=== PATIENT | female | born 1995 | race American Indian/Alaskan Native ===

== ENCOUNTER 2020-05-19 14:31 | Outpatient (REF) | payer OTHER, SELFPAY ==
[2020-06-12 14:22] LABS: CT PCR NOT DETECTED (Not Detect.); NG PCR NOT DETECTED (Not Detect.)
== END 2020-05-19 14:32 | disposition home or self-care (01) ==
LOC: HO.LAB 14:31
PROVIDERS: Visit Provider Obstetrics & Gynecology
DX: Z01.419 Encounter for gynecological examination (general) (routine) without abnormal findings (principal)
CPT/HCPCS: 87491; 87591; 88142

== ENCOUNTER 2021-01-02 17:35 | Emergency (ER) | payer OTHER, SELFPAY ==
[2021-01-02 17:42] VITALS: BP 115/96; PULSE 90; RESP 18; TEMP 36.1; O2SAT 100; BMI 35.5
[2021-01-02 19:35] VITALS: BP 134/77; PULSE 83; RESP 16; O2SAT 100
--- NOTE | 2021-01-02 19:54 | PC.NURSE ---
patient a&ox3, c/o headache/back/neck pain 01/11, vss, will continue to monitor.
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
[2021-01-02] MEDS: Ibuprofen 800 MG TABLET PO (20:41)
== END 2021-01-02 20:50 | disposition home or self-care (01) ==
PROVIDERS: Emergency Provider Internal Medicine
DX: S29.9XXA Unspecified injury of thorax, initial encounter (principal); M54.6 Pain in thoracic spine; V43.52XA Car driver injured in collision with other type car in traffic accident, initial encounter; Y93.9 Activity, unspecified; Y92.410 Unspecified street and highway as the place of occurrence of the external cause; Y99.9 Unspecified external cause status; Z79.899 Other long term (current) drug therapy
CPT/HCPCS: 99284

== ENCOUNTER 2022-06-20 08:54 | Outpatient (REF) | payer OTHER, SELFPAY ==
[2022-06-20 09:12] LABS: MANUAL DIFF FLAG NO
[2022-06-20 09:22] LABS: Basophils Percent Auto 0.3 % (0-2); Eosinophils Percent Auto 0.4 % (0-4); Hematocrit 39.6 % (37.0-47.0); Hemoglobin 13.3 g/dl (12.0-16.0); Imm Gran Abs Auto 0.01 X10*3/uL (0.00-0.03); Imm Gran Pct Auto 0.1 % (0.0-0.4); Lymphocytes Absolute Auto 1.8 X10*3/uL (1.2-4.9); Lymphocytes Percent Auto 18.6 % (20-40); Mean Corpuscular HGB Conc 33.6 g/dl (31.0-35.0); Mean Corpuscular Hemoglobin 28.9 pg (27.0-33.0); Mean Corpuscular Volume 85.9 fL (80.0-98.0); Monocytes Absolute Auto 0.8 X10*3/uL (0.1-1.2); Monocytes Percent Auto 7.7 % (2-11); Neutrophils Absolute Auto 7.2 x10*3/uL (2.0-8.3); Neutrophils Percent Auto 72.9 % (45-73); Platelet Count 353 X10*3/uL (160-400); Red Blood Count 4.61 X10*6/uL (4.20-5.50); Red Cell Distribution Width 11.9 % (11.0-16.0); White Blood Count 9.8 X10*3/uL (4.8-10.8)
[2022-06-20 10:04] LABS: Alanine Aminotransferase 14 U/L (0-31); Albumin Level 4.5 g/dL (3.5-5.0); Alkaline Phosphatase 63 U/L (39-117); Anion Gap 12 (12-20); Aspartate Amino Transferase 15 U/L (5-31); Bilirubin Total 0.8 mg/dL (0.0-1.0); Blood Urea Nitrogen 13 mg/dL (9-16); Calcium 9.5 mg/dL (8.4-10.2); Carbon Dioxide 28 mmol/L (22-29); Chloride 104 mmol/L (96-108); Cholesterol 146 mg/dL; Estimated Glomerular Filt Rate > 60; Glucose Fasting 98 mg/dL (60-99); HDL Cholesterol 47 mg/dL; LDL Cholesterol Calculated 82 mg/dl; Potassium 4.1 mmol/L (3.3-5.1); Sodium 140 mmol/L (135-145); Total Protein 7.3 g/dL (6.5-8.0); Triglycerides 86 mg/dL
[2022-06-20 10:19] LABS: Free T4 (Free Thyroxine) 0.94 ng/dL (0.71-1.85); Thyroid Stimulating Hormone 2.23 uIU/mL (0.32-4.0)
== END 2022-06-20 08:55 | disposition home or self-care (01) ==
LOC: HO.LAB 08:54
PROVIDERS: PCP Internal Medicine; Visit Provider Internal Medicine
DX: E66.9 Obesity, unspecified (principal)
CPT/HCPCS: 36415; 80053; 80061; 84439; 84443; 85025

== ENCOUNTER 2023-02-24 10:11 | Outpatient (AMB) | payer OTHER, SELFPAY ==
[2023-02-24 11:40] VITALS: BP 122/78; PULSE 89; TEMP 36.6; BMI 37.6
--- NOTE | 2023-02-24 11:40 | AM.OFFWIN_ITS ---
Intake Vital Signs 02/24/23 11:40 Height 4 ft 10 in Weight 180 lb BMI 37.6 BP 122/78 Blood Pressure Location Rt brachial Position Sitting Pulse 89 Pulse Source Pulse Oximeter Temp 97.9 F Temp Source Temporal Artery Scan Intake Visit Reasons: EST/right arm issues Intake Note: pt is here for c/o right arm issues, painful bump Patient Tobacco Use Status: Never used Tobacco Allergies No Known Allergies Allergy (Verified 02/24/23 11:41) Do you need a note to return to daycare/school/sports/work: Yes HPI EST/right arm issues HPI Details Patient is a 27-year-old female comes to the walk-in clinic complaining of some tenderness to right anterior elbow. She states she was palpating the she noticed that she has a palpable mass, and then started to feel some discomfort. She has no current pain or symptoms, and denies the area ever being red or warm or swollen. She denies trauma to the area, although she does have overlying tattoos. No fever chills, weakness or dizziness, myalgias or malaise, or other significant associated symptoms. FOR[facility]LY [facility], [facility] Medical History Depression Surgical History No pertinent past surgical history Family History Maternal Grandmother Diabetes HTN (hypertension) Family/Other Substance use disorder Social History Housing: Apartment Alcohol intake: current Alcohol intake frequency: holidays/special occasions only Alcohol type: hard liquor Patient Tobacco Use Status: Never used Tobacco e-Cigarette/Vaping Use: Never Used Second Hand Smoke Exposure: No service: No Current occupational status: unemployed Sexual orientation: Straight/Heterosexual Gender identity: Female Cognitive needs: No Hearing needs: No Vision needs: No Female Reproductive History Menstrual Age of Menarche: 12 Review of Systems Const All systems reviewed & are unremarkable except as noted in HPI and below Physical Exam Vital Signs: Last Vital Signs Temp 97.9 F 02/24/23 11:40 Pulse 89 02/24/23 11:40 BP 122/78 02/24/23 11:40 BMI result Body Mass Index 37.6 Const General: cooperative, healthy appearing, comfortable, no acute distress, alert, awake, Physically active and well groomed; No anxious, diaphoretic, ill appearing, intoxicated appearing, poor hygiene or tired appearing Nutritional Appearance: average body habitus Orientation/consciousness: oriented to person Limitations: no limitations Resp Effort & Inspection: normal respiratory effort Cardio Rate: regular rate Rhythm: regular rhythm Skin Other: Good color, warm and dry Neuro General: oriented to person Extrem Right upper extremity: normal to inspection, full ROM, normal capillary refill and elbow/forearm Details: normal to inspection and other (Palpable soft tissue on the anterior aspect of the right forearm, just distal to the crease of the elbow. Similar to the left side); no tenderness, no swelling, no lacerations, no ecchymosis and no deformity; no cyanosis and no edema Left upper extremity: elbow/forearm Details: other (Similar palpable mass in same area as the right) Psych Appearance: grossly normal Mental Status: mental status grossly normal Speech and movement: Normal speech and movement present Affect: normal affect Attitude: cooperative Thought process: Normal thought process present Insight: Good insight present (Psych) Judgement: Good judgement present (Psych) Assessment & Plan Assessment & Plan (1) Lipoma of arm: Code(s): D17.20 - Benign lipomatous neoplasm of skin and subcutaneous tissue of unspecified limb Plan: Patient has what feels to be soft mobile tissue on the anterior aspects of her forearms, just distal to the elbow crease. It is possible they are lipomas, and might be associated with past trauma or just a normal variant for her. She does have tattoos on the skin overlying on the right side, which is where she some tenderness after she help set. I advised severe crying from the area, as the clinic did not aggravate her. Does not for, so I do not suspect a rupture epidermoid cyst, however I advised that she does start with some redness warmth or increased tenderness, that she should suspect epidermoid cyst rupture, she should follow-up. She would likely need general surgery for excision, as it is in a high-risk area. Coding Level of Care Code Est Pt Level 4 (39070) Diagnoses Lipoma of arm D17.20
== END 2023-02-24 12:51 | disposition home or self-care (01) ==
PROVIDERS: PCP Internal Medicine; Visit Provider Physician Assistant Medical
DX: D17.20 Benign lipomatous neoplasm of skin and subcutaneous tissue of unspecified limb (principal)
CPT/HCPCS: 99051; 99214

== ENCOUNTER 2023-05-10 09:50 | Outpatient (AMB) | payer OTHER, SELFPAY ==
--- NOTE | 2023-05-10 10:02 | A.OFFVIS_ITS ---
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 No complaints. The patient is interested in STD screen Last Pap was in 05/23 was negative PFSH Medical History Depression Surgical History No pertinent past surgical history Family History Maternal Grandmother Diabetes HTN (hypertension) Family/Other Substance use disorder Social History Housing: Apartment Alcohol intake: current Alcohol intake frequency: holidays/special occasions only Alcohol type: hard liquor Patient Tobacco Use Status: Never used Tobacco e-Cigarette/Vaping Use: Never Used Second Hand Smoke Exposure: No service: No Current occupational status: unemployed Sexual orientation: Straight/Heterosexual Gender identity: Female Cognitive needs: No Hearing needs: No Vision needs: No Female Reproductive History Menstrual Age of Menarche: 12 Date of last menstrual period: 04/24/23 Total pregnancies: 1 Full term: 1 Number of Living Children: 1 Date of last pap smear: 05/20/20 Review of Systems Const All systems reviewed & are unremarkable except as noted in HPI and below Card Reports as per HPI Resp Reports as per HPI GI Reports as per HPI and Reports no additional complaints Reports as per HPI Physical Exam Vital Signs: Last Vital Signs BP 118/70 05/10/23 10:03 BMI result Body Mass Index 37.3 Const General: cooperative, healthy appearing and comfortable Chest Chest palpation & inspection: normal inspection of the chest and normal palpation of entire chest wall Breast/axilla inspection: normal inspection of the breasts and normal inspection of the axillae Breast/axilla palpation: normal palpation of the breasts, normal palpation of the axillae and no axillary lymphadenopathy Resp Effort & Inspection: normal respiratory effort Auscultation: clear to auscultation bilaterally Percussion: percussion normal Cardio Palpation: normal PMI Rate: regular rate Rhythm: regular rhythm Heart sounds: no murmurs and no rubs Peripheral pulses: Peripheral pulses 2+ throughout GI Inspection: Yes normal to inspection Palpation (GI): Soft to palpation, nontender, no guarding, not rigid and No hepatosplenomegaly present Percussion: Yes normal to percussion Auscultation: normal bowel sounds Rectal Exam - Female: deferred General: Yes bladder normal to palpation External Female Exam: No lesion Speculum Exam - Vagina: normal appearance of the vagina, normal palpation, normal vaginal discharge and not erythematous Speculum Exam - Cervix: normal appearance of the cervix and normal palpation Bimanual exam- vagina & uterus: normal bimanual exam, normal palpation, uterine size normal, bladder normal to palpation, consistency normal and normal palpati on Bimanual Exam- Adnexa, other: normal adnexae, no masses and no tenderness Assessment & Plan Assessment & Plan (1) Well woman exam: Code(s): Z01.419 - Encounter for gynecological examination (general) (routine) without abnormal findings Plan: Pap smear taken. Counseled the patient about the recommended dietary allowance of 1000 mg of Calcium & 600 IU of vitamin D. The patient was instructed to perform monthly self-breast exams , to call for any changes in menstrual patterns and to schedule an annual exam in a year; all questions answered and the patient verbalized understanding. (2) Screen for STD (sexually transmitted disease): Code(s): Z11.3 - Encounter for screening for infections with a predominantly sexual mode of transmission Plan: STD screening tests done includes: BV panel for trichomonas, GC/CT will send patient for serology std screening for HIV, RPR, Hep b s Ag, HepC Ab. Instructions given the patient to schedule a follow-up appointment for repeat serology screen in 6 months for possible false negatives. Orders: Orders HIV Ab/Ag Today Z20.2 - Contact with and (suspected) exposure to infections with a predominantly sexual mode of transmission Hepatitis B Surface Antigen Today Z20.2 - Contact with and (suspected) exposure to infections with a predominantly sexual mode of transmission Hepatitis C Antibody Today Z20.2 - Contact with and (suspected) exposure to infections with a predominantly sexual mode of transmission Syphilis Screen Today Z20.2 - Contact with and (suspected) exposure to infections with a predominantly sexual mode of transmission Coding Level of Care Code Est Pt Prev Care 18-39y(05067) Diagnoses Well woman exam Z01.419 Screen for STD (sexually transmitted disease) Z11.3
[2023-05-10 10:03] VITALS: BP 118/70; BMI 37.3
== END 2023-05-10 10:28 | disposition home or self-care (01) ==
PROVIDERS: Visit Provider Obstetrics & Gynecology
DX: Z01.419 Encounter for gynecological examination (general) (routine) without abnormal findings (principal); Z11.3 Encounter for screening for infections with a predominantly sexual mode of transmission
CPT/HCPCS: 99395

== ENCOUNTER 2023-05-10 09:50 | Outpatient (REF) | payer OTHER, SELFPAY ==
[2023-05-10 12:06] LABS: HBsAGNum1 0.43 S/CO (0.00-0.99); HIV AB/AG Nonreactive (Nonreactive); HIV Num 1 0.04 S/CO (0.00-0.99); Hepatitis B Surface Antigen Negative (Negative); Syphilis Screen Nonreactive (Nonreactive); ~HepC Num1 0.16 S/CO (0.00-0.79); ~Hepatitis C Antibody Nonreactive (Nonreactive)
[2023-05-10 15:03] LABS: CT PCR NOT DETECTED (Not Detect.); NG PCR NOT DETECTED (Not Detect.)
[2023-05-11 13:15] LABS: BV Int Neg Control Negative (Negative); BV Int Pos Control Positive (Positive)
== END 2023-05-10 09:51 | disposition home or self-care (01) ==
LOC: HO.LAB 09:50
PROVIDERS: PCP Internal Medicine; Visit Provider Obstetrics & Gynecology
DX: Z01.419 Encounter for gynecological examination (general) (routine) without abnormal findings (principal); Z20.2 Contact with and (suspected) exposure to infections with a predominantly sexual mode of transmission
CPT/HCPCS: 0353U; 36415; 86780; 86803; 87340; 87389; 87480; 87510; 87660; 88142

== ENCOUNTER 2023-10-16 16:32 | Outpatient (AMB) | payer OTHER, SELFPAY ==
--- NOTE | 2023-10-16 16:32 | A.OFFPC_ITS ---
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 Accompanied by: Mother Allergies No Known Allergies Allergy (Verified 10/16/23 16:54) Medication List - Last Reconciled 10/16/23 by Lore Contreras MD escitalopram oxalate 10 mg PO DAILY fluocinonide 0.05% 1 appl topical BID 30 days lorazepam 0.5 mg PO BEDTIME PRN polyvinyl alcohol 1.4% (Artificial Tears (polyvinyl alcohol)) 1 drp ophthalmic (eye) BID-QID PRN 7 days valacyclovir (Valtrex) 500 mg PO BID 3 days Tobacco use date assessed: 10/16/23 Dental Screening Dental Screen Date: 10/16/23 Did you have a dental visit in the last 12 months?: Yes Did you have a dental problem in the last 6 months where you did not have access to dental care?: No Was dental information given to patient?: Patient has dentist HPI HPI Comments History of Present Illness Details This is a 28-year-old female that comes today accompanied by mother complaining of a lump in her left arm that has been present for years but recently it has been tender and bigger. Will be referred to surgery and I will order ultrasound. FOR[facility]LY [facility], [facility] Medical History (Updated 10/16/23 @ 18:10 by Lore Contreras MD) Mild major depression Depression Surgical History No pertinent past surgical history Family History Maternal Grandmother Diabetes HTN (hypertension) Family/Other Substance use disorder Social History Housing: Apartment Alcohol intake: current Alcohol intake frequency: holidays/special occasions only Alcohol type: hard liquor Patient Tobacco Use Status: Never used Tobacco e-Cigarette/Vaping Use: Never Used Second Hand Smoke Exposure: No service: No Current occupational status: employed Current occupational exposures/hazards: No Sexual orientation: Straight/Heterosexual Gender identity: Female Cognitive needs: No Hearing needs: No Vision needs: No Female Reproductive History Menstrual Age of Menarche: 12 Questionnaire PHQ-9 Over the last 2 weeks, how often have you been bothered by any of the following problems? 1. Little interest or pleasure in doing things: not at all 2. Feeling down, depressed, or hopeless: not at all 3. Trouble falling or staying asleep, or sleeping too much: not at all 4. Feeling tired or having little energy: not at all 5. Poor appetite or overeating: not at all 6. Feeling bad about yourself - or that you are a failure or have let yourself or your family down: not at all 7. Trouble concentrating on things, such as reading the newspaper or watching television: not at all 8. Moving or speaking so slowly that other people could have noticed. Or the opposite - being so fidgety or restless that you have been moving around a lot more than usual: not at all 9. Thoughts that you would be better off or of hurting yourself in some way: not at all Total score: 0 Depression Screening Interpretation: Negative Depression Screening Done: Yes 40274 - PHQ-9 Billing: Yes Source: Developed by Drs. Piero Ren, Mariely Meyer, Cristiano Manzano and colleagues, with an educational kenji from [employer]. Thrive Questionnaire Date Thrive assessed: 10/16/23 I am a: Patient What is your living situation today?: I have a steady place to live Within the past 12 months, did the food you bought not last and you didn't have the money to get more?: Never true Within the past 12 months, did you worry whether your food would run out before you got money to buy more?: Never true Do you have trouble paying for medicines?: No Do you have trouble getting transportation to medical appointments?: No Do you have trouble paying your heating and electricity bill?: No Do you have trouble taking care of your child, family member or friend?: No Do you have trouble with day-to-day activities such as bathing, preparing meals, shopping, managing finances, etc.?: No Are you currently unemployed and looking for a job?: No Are you interested in more education?: No Please select the resources that you would like help with: None Currently or been in a relationship where the following occur: no concerns reported THRIVE Score: 0 AUDIT C Alcohol Use Questionnaire (AUDIT-C) 1. How often do you have a drink containing alcohol?: Never Total Score: 0 Score Reviewed/Action Taken: No YAJAIRA-7 AMB Questionnaire YAJAIRA-7 Date YAJAIRA - 7 assessed: 10/16/23 Feeling nervous, anxious, or on edge: 1 = Several days Not being able to stop or control worryin = Several days Worrying too much about different things: 3 = Nearly every day Trouble relaxin = Nearly every day Being so restless that it is hard to sit still: 1 = Several days Becoming easily annoyed or irritable: 1 = Several days Feeling afraid as if something awful might happen: 0 = Not at all Total YAJAIRA-7 score (0-4 normal; 5-9 mild; 10-14 moderate; 15-21 severe): 10 Source: Developed by Drs. Piero Ren, Mariely Meyer, Cristiano Manzano and colleagues, with an educational kenji from [employer]. YAJAIRA-7 Assessment Billing YAJAIRA-7 Assessment Tool: YAJAIRA-7 Assessment 87191 Review of Systems Const All systems reviewed & are unremarkable except as noted in HPI and below Eyes Reports no additional complaints, Denies change in vision and Denies other visual disturbances Card Denies chest pain at rest, Denies chest pain with activity, Denies edema, Denies irregular heart rhythm, Denies claudication, Denies dyspnea, Denies dyspnea on exertion, Denies orthopnea, Denies paroxysmal nocturnal dyspnea and Denies slow heart rate Resp Denies cough, Denies dyspnea and Denies dyspnea on exertion GI Denies abdominal pain, Denies change in bowel habits, Denies excessive flatus, Denies nausea and Denies vomiting Denies urinary incontinence, Denies urinary hesitancy and Denies urinary urgency Physical exam (Primary Care) Vital Signs: Last Vital Signs BP 122/80 10/16/23 16:33 BMI result Body Mass Index 38.9 Tobacco/Smoking Status: Tobacco use Status Tobacco use date assessed 10/16/23 10/16/23 16:43 Patient Tobacco Use Status Never used Tobacco 10/16/23 16:43 e-Cigarette/Vaping Use Never Used 10/16/23 16:43 PHQ-9: PHQ-9 Score PHQ-9: Total score 0 10/16/23 16:57 Depression Screening Interpretation: Negative Thrive Assessment: Date of Thrive Assessment Date Thrive assessed 10/16/23 10/16/23 16:43 Currently or been in a relationship where the following occur: no concerns reported Resp Effort & Inspection: normal respiratory effort Auscultation: clear to auscultation bilaterally Cardio Jugular venous distension: no JVD Rate: regular rate Rhythm: regular rhythm Heart sounds: S1 normal heart sound present and S2 normal heart sound present Extrem General: Yes full ROM Assessment and Plan Assessment & Plan (1) Lump of skin of left upper extremity: Code(s): R22.32 - Localized swelling, mass and lump, left upper limb Plan: Ultrasound of the arm ordered. Referred to surgery. Orders: Orders US extremity nonvascular damon Today R22.32 - Localized swelling, mass and lump, left upper limb Referrals General Surgery Referral R22.32 - Localized swelling, mass and lump, left upper limb Coding Level of Care Code Est Pt Level 3 (67693) Diagnoses Lump of skin of left upper extremity R22.32 Additional Codes YAJAIRA-7 Assessment Billing - YAJAIRA-7 Assessment Tool: YAJAIRA-7 Assessment 12649 ([id number]) Time Spent (min) 23
[2023-10-16 16:33] VITALS: BP 122/80; BMI 38.9
== END 2023-10-16 17:03 | disposition home or self-care (01) ==
PROVIDERS: PCP Internal Medicine; Visit Provider Internal Medicine
DX: R22.32 Localized swelling, mass and lump, left upper limb (principal)
CPT/HCPCS: 99213

== ENCOUNTER 2023-11-05 09:20 | Outpatient (AMB) | payer OTHER, SELFPAY ==
[2023-11-05 09:32] VITALS: BP 126/80; BMI 38.5
--- NOTE | 2023-11-05 09:32 | A.OFFPC_ITS ---
Vital Signs 11/05/23 09:32 Height 4 ft 10 in Weight 184 lb BMI 38.5 BP 126/80 Blood Pressure Location Lt brachial Position Sitting Intake Visit Reasons: pe Intake Note: Patient here for a physical exam Cd Mixer Required: No Accompanied by: Mother Allergies No Known Allergies Allergy (Verified 11/05/23 09:53) Medication List - Last Reconciled 11/05/23 by Lore Contreras MD escitalopram oxalate 10 mg PO DAILY fluocinonide 0.05% 1 appl topical BID 30 days lorazepam 0.5 mg PO BEDTIME PRN polyvinyl alcohol 1.4% (Artificial Tears (polyvinyl alcohol)) 1 drp ophthalmic (eye) BID-QID PRN 7 days valacyclovir (Valtrex) 500 mg PO BID 3 days Tobacco use date assessed: 10/16/23 Dental Screening Dental Screen Date: 10/16/23 HPI HPI Comments History of Present Illness Details This is a 28-year-old female with mild major depression follow by psychiatry and counseling that comes accompanied by mother for her physical exam. Depression still present with escitalopram. Follow-up visit requested. Pap smear is up-to-date. Denies any chest pain or shortness on breath. She has a BMI of 38.5 and I will start her on Wegovy for this matter. Side effects were thoroughly explained. [facility] Medical History (Updated 11/05/23 @ 11:02 by Lore Contreras MD) Mild major depression Depression Surgical History No pertinent past surgical history Family History (Updated 11/05/23 @ 09:56 by Lore Contreras MD) Maternal Grandmother Diabetes HTN (hypertension) Family/Other Substance use disorder Mother No problems noted. Social History Housing: Apartment Alcohol intake: current Alcohol intake frequency: holidays/special occasions only Alcohol type: hard liquor Patient Tobacco Use Status: Never used Tobacco e-Cigarette/Vaping Use: Never Used Second Hand Smoke Exposure: No service: No Current occupational status: employed Current occupational exposures/hazards: No Sexual orientation: Straight/Heterosexual Gender identity: Female Cognitive needs: No Hearing needs: No Vision needs: No Female Reproductive History Menstrual Age of Menarche: 12 Questionnaire PHQ-9 Over the last 2 weeks, how often have you been bothered by any of the following problems? 1. Little interest or pleasure in doing things: several days 2. Feeling down, depressed, or hopeless: several days 3. Trouble falling or staying asleep, or sleeping too much: several days 4. Feeling tired or having little energy: several days 5. Poor appetite or overeating: several days 6. Feeling bad about yourself - or that you are a failure or have let yourself or your family down: several days 7. Trouble concentrating on things, such as reading the newspaper or watching television: several days 8. Moving or speaking so slowly that other people could have noticed. Or the opposite - being so fidgety or restless that you have been moving around a lot more than usual: several days 9. Thoughts that you would be better off or of hurting yourself in some way: several days Total score: 9 Depression Screening Interpretation: Positive Depression Screening Follow-up: Existing condition, In treatment, Community Mental Health Worker F/U and Follow-up Visit Requested Depression Screening Done: Yes 15922 - PHQ-9 Billing: Yes Source: Developed by Drs. Piero Ren, Cristiano Martinez and colleagues, with an educational kenji from [employer]. Thrive Questionnaire Date Thrive assessed: 10/16/23 YAJAIRA-7 AMB Questionnaire YAJAIRA-7 Date YAJAIRA - 7 assessed: 10/16/23 Source: Developed by Mariely Rose Kurt Kroenke and colleagues, with an educational kenji from [employer]. Review of Systems Const All systems reviewed & are unremarkable except as noted in HPI and below Eyes Reports no additional complaints, Denies change in vision and Denies other visual disturbances Card Denies chest pain at rest, Denies chest pain with activity, Denies edema, Denies irregular heart rhythm, Denies claudication, Denies dyspnea, Denies dyspnea on exertion, Denies orthopnea, Denies paroxysmal nocturnal dyspnea and Denies slow heart rate Resp Denies cough, Denies dyspnea and Denies dyspnea on exertion Physical exam (Primary Care) Vital Signs: Last Vital Signs BP 126/80 11/05/23 09:32 BMI result Body Mass Index 38.5 Tobacco/Smoking Status: Tobacco use Status Tobacco use date assessed 10/16/23 11/05/23 09:36 Patient Tobacco Use Status Never used Tobacco 11/05/23 09:36 e-Cigarette/Vaping Use Never Used 11/05/23 09:36 PHQ-9: PHQ-9 Score PHQ-9: Total score 9 11/05/23 10:07 Depression Screening Interpretation: Positive Depression Screening Follow-up: Existing condition, In treatment, Community Mental Health Worker F/U and Follow- up Visit Requested Thrive Assessment: Date of Thrive Assessment Date Thrive assessed 10/16/23 11/05/23 09:36 Const Orientation/consciousness: patient oriented x3 HENMT Head: Yes normal to inspection, Yes normocephalic and Yes atraumatic Ears: external ears normal Eyes General: appearance normal, both eyes and all related structures Eyelids: Yes eyelids normal Conjunctivae: conjunctivae normal Neck Neck: Yes normal visual inspection and Yes supple Resp Effort & Inspection: normal respiratory effort Auscultation: clear to auscultation bilaterally Cardio Jugular venous distension: no JVD Rate: regular rate Rhythm: regular rhythm Heart sounds: S1 normal heart sound present and S2 normal heart sound present GI Inspection: Yes normal to inspection Palpation (GI): Soft to palpation and nontender Auscultation: normal bowel sounds Skin General skin exam: no rashes or lesions noted Neuro General: patient oriented x3 and no focal motor deficits Extrem General: Yes full ROM Psych Appearance: grossly normal Assessment and Plan Assessment & Plan (1) Physical exam: Code(s): Z00.00 - Encounter for general adult medical examination without abnormal findings Plan: Repeat in a year. (2) Mild major depression: Code(s): F32.0 - Major depressive disorder, single episode, mild Plan: Continue escitalopram. Follow-up with psychiatry and counseling. Orders: Orders Complete Blood Count Auto Diff Today D72.829 - Elevated white blood cell count, unspecified Comprehensive [place]. Panel Fast Today Z00.00 - Encounter for general adult medical examination without abnormal findings Lipid Panel Today E78.5 - Hyperlipidemia, unspecified Vitamin D 25-OH Total Today E55.9 - Vitamin D deficiency, unspecified Medications: New semaglutide (weight loss) (Alejandro) administer weeks 1 through 4 of therapy 0.25 mg (0.5 mL) subcut QWEEK 2 mL 0RF 4 weeks E66.9 - Obesity, unspecified, Z68.38 - Body mass index [BMI] 38.0- 38.9, adult Coding Level of Care Code Est Pt Prev Care 18-39y(10566) Diagnoses Physical exam Z00.00 Mild major depression F32.0 Time Spent (min) 33
== END 2023-11-05 10:07 | disposition home or self-care (01) ==
PROVIDERS: Visit Provider Internal Medicine
DX: Z00.00 Encounter for general adult medical examination without abnormal findings (principal); F32.0 Major depressive disorder, single episode, mild
CPT/HCPCS: 99395

== ENCOUNTER 2023-11-05 10:22 | Outpatient (REF) | payer OTHER, SELFPAY ==
--- NOTE | ~2023-11-05 | US_ITS ---
EXAMINATION: US extremity nonvascular damon CLINICAL INFORMATION: Localized swelling, mass and lump, right upper limb COMPARISON: None. TECHNIQUE: Real time sonographic exam of the palpable area of concern in the lateral right upper extremity near the elbow. FINDINGS: Superficial tortuous serpiginous hypoechoic areas without color flow seen in the soft tissue of the lateral elbow which may be originating from the cephalic vein. These are favored to represent thrombosed varicose veins. There is no soft tissue edema surrounding stranding or adjacent fluid collection. US/US extremity nonvascular damon IMPRESSION: Thrombosed superficial varicose veins along the lateral right elbow which can be seen in thrombophlebitis in the appropriate clinical setting.
[2023-11-05 10:33] LABS: MANUAL DIFF FLAG NO
[2023-11-05 10:43] LABS: Basophils Percent Auto 0.4 % (0-2); Eosinophils Percent Auto 0.6 % (0-4); Hematocrit 39.7 % (37.0-47.0); Hemoglobin 13.4 g/dl (12.0-16.0); Imm Gran Abs Auto 0.02 X10*3/uL (0.00-0.03); Imm Gran Pct Auto 0.3 % (0.0-0.4); Lymphocytes Absolute Auto 1.7 X10*3/uL (1.2-4.9); Lymphocytes Percent Auto 24.3 % (20-40); Mean Corpuscular HGB Conc 33.8 g/dl (31.0-35.0); Mean Corpuscular Hemoglobin 29.6 pg (27.0-33.0); Mean Corpuscular Volume 87.6 fL (80.0-98.0); Mean Platelet Volume 9.1 fL (9.4-12.3); Monocytes Absolute Auto 0.6 X10*3/uL (0.1-1.2); Neutrophils Absolute Auto 4.6 x10*3/uL (2.0-8.3); Neutrophils Percent Auto 66.4 % (45-73); Platelet Count 338 X10*3/uL (160-400); Red Blood Count 4.53 X10*6/uL (4.20-5.50); Red Cell Distribution Width 12.2 % (11.0-16.0); White Blood Count 6.9 X10*3/uL (4.8-10.8)
[2023-11-05 11:29] LABS: Alanine Aminotransferase 12 U/L (0-31); Albumin Level 4.5 g/dL (3.5-5.0); Alkaline Phosphatase 61 U/L (39-117); Anion Gap 11 (12-20); Aspartate Amino Transferase 15 U/L (5-31); Bilirubin Total 0.5 mg/dL (0.0-1.0); Blood Urea Nitrogen 13 mg/dL (9-16); Calcium 9.7 mg/dL (8.4-10.2); Carbon Dioxide 26 mmol/L (22-29); Chloride 108 mmol/L (96-108); Cholesterol 138 mg/dL (<200); Estimated Glomerular Filt Rate > 60; Glucose Fasting 95 mg/dL (60-99); HDL Cholesterol 53 mg/dL (>40); LDL Cholesterol Calculated 71 mg/dL (<100); Potassium 4.3 mmol/L (3.3-5.1); Sodium 141 mmol/L (135-145); Total Protein 7.4 g/dL (6.5-8.0); Triglycerides 74 mg/dL (<150)
[2023-11-05 11:31] LABS: Vitamin D 25-OH Total 13.6 ng/mL (>30)
== END 2023-11-05 10:23 | disposition home or self-care (01) ==
LOC: HO.US 10:22
PROVIDERS: PCP Internal Medicine; Visit Provider Internal Medicine
DX: R22.32 Localized swelling, mass and lump, left upper limb (principal); D72.829 Elevated white blood cell count, unspecified; E78.5 Hyperlipidemia, unspecified; E55.9 Vitamin D deficiency, unspecified; Z00.00 Encounter for general adult medical examination without abnormal findings
CPT/HCPCS: 36415; 76882; 80053; 80061; 82306; 85025

== ENCOUNTER 2023-11-06 11:15 | Outpatient (AMB) | payer OTHER, SELFPAY ==
--- NOTE | 2023-11-06 11:35 | MHC.OFFVIS ---
Vital Signs 11/06/23 11:39 Height 4 ft 10 in Weight 184 lb BMI 38.5 BP 145/96 H Blood Pressure Location Rt brachial Position Sitting Pulse 97 Intake Visit Reasons: Lump~ Rt upper arm Intake Note: Patient referred by PCP Dr. Gaurang Conrteras for lump on Rt upper arm. Present for yrs. Patient c/o: possible trauma from tattoo. Quality Improvement Manager Required: No Accompanied by: mom Allergies No Known Allergies Allergy (Verified 11/06/23 11:40) Medication List - Last Reconciled 11/06/23 by Abad Ramirez MD aspirin 81 mg PO DAILY 30 days cholecalciferol (vitamin D3) 50 mcg PO DAILY 90 days escitalopram oxalate 10 mg PO DAILY fluocinonide 0.05% 1 appl topical BID 30 days lorazepam 0.5 mg PO BEDTIME PRN polyvinyl alcohol 1.4% (Artificial Tears (polyvinyl alcohol)) 1 drp ophthalmic (eye) BID-QID PRN 7 days semaglutide (weight loss) (Wegovy) 0.25 mg (0.5 mL) subcut QWEEK 4 weeks valacyclovir (Valtrex) 500 mg PO BID 3 days HPI Comments Details: Patient presents with her mother. She has a left volar aspect lipoma which he has had for several years time. It is increasing size become more symptomatic. Separate issue patient had sonogram of the arm was demonstrated superficial thrombophlebitis which is different from mass of the right forearm. [facility] Medical History Mild major depression Depression Surgical History No pertinent past surgical history Family History Maternal Grandmother Diabetes HTN (hypertension) Family/Other Substance use disorder Mother No problems noted. Social History Housing: Apartment Alcohol intake: current Alcohol intake frequency: holidays/special occasions only Alcohol type: hard liquor Patient Tobacco Use Status: Never used Tobacco e-Cigarette/Vaping Use: Never Used Second Hand Smoke Exposure: No service: No Current occupational status: employed Current occupational exposures/hazards: No Sexual orientation: Straight/Heterosexual Gender identity: Female Cognitive needs: No Hearing needs: No Vision needs: No Female Reproductive History Menstrual Age of Menarche: 12 Physical Exam Vital Signs: Last Vital Signs Pulse 97 11/06/23 11:39 BP 145/96 H 11/06/23 11:39 BMI result Body Mass Index 38.5 Extrem Other: Patient has a proximally 3 x 2 cm right lateral in the anter-cubital fossa mass consistent with lipoma. Office Procedures Excision Details: Risks, benefits, alternatives of excision of right forearm lipoma reviewed with the patient and her mother and included but not limited to bleeding, infection, recurrence, numbness, pain, scarring the patient wished to proceed. All questions answered. Consent signed. After appropriate positioning and marking,, patient underwent 1% lidocaine and Betadine prep and a longitudinal incision was made over the mass in question consistent with a lipoma measuring approximately 3 x 2 cm. This was uneventfully enucleated. Specimen sent to pathology. Wound was irrigated, secured hemostasis, and closed using running subcuticular 3-0 Vicryl suture followed by Steri-Strips and sterile dressings. Patient tolerated procedure well 64571-adviw/arms/legs 2.1-3cm Procedure code (CPT) selection complete Office Meds lidocaine 1 %-epinephrine 1:100,000 injection solution Performing Provider: Abad Ramirez MD Performing Location: [facility] Administered by: Abad Ramirez MD on 11/06/23 12:14 Dose Route Admin Location Dispensed Lot Number Expiration Date [facility] Child Development Assistant 10 mL Infiltration 10 mL Assessment & Plan Assessment & Plan (1) Lipoma of arm: Code(s): D1. - Benign lipomatous neoplasm of skin and subcutaneous tissue of unspecified limb Category: Surgical Plan: Patient and mother have been given local instructions including avoiding strenuous activities, ice to the wound, Tylenol and Motrin p.r.n., may shower in 2 days and patient will see me as directed or p.r.n.. Orders: Orders AMB Excision Today . - Benign lipomatous neoplasm of skin and subcutaneous tissue of unspecified limb Medications: New lidocaine-epinephrine 1 %-1:100,000 10 mL Infiltration ONCE 30 mL 0RF D1.20 - Benign lipomatous neoplasm of skin and subcutaneous tissue of unspecified limb Coding Level of Care Code New Pt Level 5 (38585) Diagnoses Lipoma of arm D17.20 CPT Codes Trunk/Arms/Legs - CPT: 22107-yagmu/arms/legs 2.1-3cm ([id number])
[2023-11-06 11:39] VITALS: BP 145/96; PULSE 97; BMI 38.5
== END 2023-11-06 12:23 | disposition home or self-care (01) ==
PROVIDERS: PCP Internal Medicine; Referring Provider Internal Medicine; Visit Provider Surgery
DX: R22.31 Localized swelling, mass and lump, right upper limb (principal); L74.8 Other eccrine sweat disorders
CPT/HCPCS: 11403; 99204

== ENCOUNTER 2023-11-06 11:15 | Outpatient (REF) | payer OTHER, SELFPAY | END 2023-11-06 11:16 | disposition home or self-care (01) | LOC: HO.LNP 11:15 | PROVIDERS: PCP Internal Medicine; Referring Provider Internal Medicine; Visit Provider Surgery | DX: D17.20 Benign lipomatous neoplasm of skin and subcutaneous tissue of unspecified limb (principal) | CPT/HCPCS: 11403; 88304; 88307; 88341; 88342; 88360; 99202 ==

== ENCOUNTER 2023-11-13 09:48 | Outpatient (AMB) | payer OTHER, SELFPAY ==
--- NOTE | 2023-11-13 09:55 | A.OFFVIS_ITS ---
Intake Visit Reasons: s/p excision Lump~ Rt upper arm Intake Note: Patient here s/p exc on Rt antecubital. Reports incision healing well. Patient c/o: steri strips in place. Denies pain, tenderness. General Lithographic Worker Required: No Accompanied by: Mother Allergies No Known Allergies Allergy (Verified 11/13/23 09:56) HPI Comments Details: Patient presents with her mother. She has no wound issues or complaints. Pathology is still pending. [facility] Medical History Mild major depression Depression Surgical History No pertinent past surgical history Family History Maternal Grandmother Diabetes HTN (hypertension) Family/Other Substance use disorder Mother No problems noted. Social History Housing: Apartment Alcohol intake: current Alcohol intake frequency: holidays/special occasions only Alcohol type: hard liquor Patient Tobacco Use Status: Never used Tobacco e-Cigarette/Vaping Use: Never Used Second Hand Smoke Exposure: No service: No Current occupational status: employed Current occupational exposures/hazards: No Sexual orientation: Straight/Heterosexual Gender identity: Female Cognitive needs: No Hearing needs: No Vision needs: No Female Reproductive History Menstrual Age of Menarche: 12 Physical Exam Extrem Other: Incision is well healed. Assessment & Plan Assessment & Plan (1) Postop check: Code(s): Z09 - Encounter for follow-up examination after completed treatment for conditions other than malignant neoplasm Category: Surgical Plan Patient has been given local instructions, and will otherwise follow-up p.r.n.. Once pathology results are obtained, they will be communicated to the patient. Incidentally, patient i Patient' s mom has a left elbow cyst/mass that she would like to have excised. She will make an appointment and when the arrangements were made for this. Coding Level of Care Code Global (91695) Diagnoses Postop check Z09
== END 2023-11-13 10:36 | disposition home or self-care (01) ==
PROVIDERS: PCP Internal Medicine; Visit Provider Surgery
DX: Z09 Encounter for follow-up examination after completed treatment for conditions other than malignant neoplasm (principal)
CPT/HCPCS: 99024

== ENCOUNTER → 2023-11-13 09:48 | Outpatient (BNVA) | payer OTHER, SELFPAY | PROVIDERS: PCP Internal Medicine; Visit Provider Surgery | DX: Z09 Encounter for follow-up examination after completed treatment for conditions other than malignant neoplasm (principal); D17.20 Benign lipomatous neoplasm of skin and subcutaneous tissue of unspecified limb | CPT/HCPCS: 99212 ==

== ENCOUNTER 2024-02-22 14:28 | Outpatient (AMB) | payer OTHER, SELFPAY ==
[2024-02-22 14:31] VITALS: BP 124/86; BMI 38.2
--- NOTE | 2024-02-22 14:31 | MHC.OFFVIS ---
Vital Signs 02/22/24 14:31 Height 4 ft 10 in Weight 182 lb 15.739 oz BMI 38.2 BP 124/86 Intake Visit Reasons: Vaginal discharge Digital Sales Executive Required: No Information Interpreted: non-clinical & clinical Medical Videographer: Medical Videographer Present (Jes PORTILLO) Accompanied by: Self / Same As Patient Allergies No Known Allergies Allergy (Verified 02/22/24 14:32) Medication List - Last Reconciled 02/22/24 by Karis Reese CNM aspirin 81 mg PO DAILY 90 days cholecalciferol (vitamin D3) 50 mcg PO DAILY 90 days escitalopram oxalate 10 mg PO DAILY fluocinonide 0.05% 1 appl topical BID 30 days lorazepam 0.5 mg PO BEDTIME PRN polyvinyl alcohol 1.4% (Artificial Tears (polyvinyl alcohol)) 1 drp ophthalmic (eye) BID-QID PRN 7 days semaglutide (weight loss) (Wegovy) 0.25 mg (0.5 mL) subcut QWEEK 4 weeks valacyclovir (Valtrex) 500 mg PO BID 3 days Is last menstrual period known: Yes Last menstrual period: 02/09/24 HPI HPI Vaginal discharge: Details: Patient is here because she has vaginal itching she is since it started 2 or 3 days ago after she douched. She had chunky white discharge. She is not contraceptive thing she is open to . She also wants to get full screening for STIs She thinks she has a yeast infection. [facility] Medical History Mild major depression Depression Surgical History No pertinent past surgical history Family History Maternal Grandmother Diabetes HTN (hypertension) Family/Other Substance use disorder Mother No problems noted. Social History (Updated 02/22/24 @ 14:33 by Jes Gallardo CMA) Housing: Apartment Alcohol intake: current Alcohol intake frequency: holidays/special occasions only Alcohol type: hard liquor Patient Tobacco Use Status: Never used Tobacco e-Cigarette/Vaping Use: Never Used Second Hand Smoke Exposure: No service: No Current occupational status: employed Current occupation: [employer] Current occupational exposures/hazards: No Sexual orientation: Straight/Heterosexual Gender identity: Female Cognitive needs: No Hearing needs: No Vision needs: No Female Reproductive History Menstrual Age of Menarche: 12 Date of last menstrual period: 02/09/24 Physical Exam Vital Signs: Last Vital Signs BP 124/86 02/22/24 14:31 BMI result Body Mass Index 38.2 Other: Her vagina is somewhat erythematous especially the vaginal mucosa. There is a white slightly adherent discharge around clitoris, upper vulva, consistent with yeast or thrush, it can be removed with touch of Q-tip. External Female Exam: normal external appearance and normal appearance of the urethra Speculum Exam - Vagina: normal appearance of the vagina and normal vaginal discharge Speculum Exam - Cervix: normal appearance of the cervix and Cervical os closed Assessment & Plan Assessment & Plan (1) Screen for STD (sexually transmitted disease): Code(s): Z11.3 - Encounter for screening for infections with a predominantly sexual mode of transmission Category: Medical (2) Yeast infection of the vagina: Code(s): B37.31 - Acute candidiasis of vulva and vagina Category: Medical Plan It does appears if the patient has a vaginal yeast infection. Discussed causes and relief measures she prefers the Diflucan treatment will treat with 1 tablet and she can repeat it in 3 days if she has any symptoms still remaining. There is an interaction between her psychiatric medications and the fluconazole so I am not ordering extra refills for her if I did explain this to her. I recommend cool water only to vulva and pelvic rest until she feels completely better. There were orders in the system for screened for STI but it appeared she did get those done so orders were placed as well that she can get done when she wishes.. Orders: Orders Bacterial Vaginosis Panel Today N89.8 - Other specified noninflammatory disorders of vagina HIV Ab/Ag Today Z11.3 - Encounter for screening for infections with a predominantly sexual mode of transmission Syphilis Screen Today Z11.3 - Encounter for screening for infections with a predominantly sexual mode of transmission CT NG by PCR Today N89.8 - Other specified noninflammatory disorders of vagina Hepatitis B Surface Antigen Today Z11.3 - Encounter for screening for infections with a predominantly sexual mode of transmission Hepatitis C Antibody Today Z11.3 - Encounter for screening for infections with a predominantly sexual mode of transmission Medications: New fluconazole may repeat second dose 72 hrs after first dose if symptoms persist 150 mg PO Q3D 2 doses 2 tabs 0RF Coding Level of Care Code Est Pt Level 3 (55476) Diagnoses Screen for STD (sexually transmitted disease) Z11.3 Yeast infection of the vagina B37.31
== END 2024-02-22 14:48 | disposition home or self-care (01) ==
LOC: HO.HWSM 14:28
PROVIDERS: PCP Internal Medicine; Visit Provider Advanced Practice Midwife
DX: Z11.3 Encounter for screening for infections with a predominantly sexual mode of transmission (principal); B37.31 Acute candidiasis of vulva and vagina
CPT/HCPCS: 99213

== ENCOUNTER 2024-02-22 14:28 | Outpatient (REF) | payer OTHER, SELFPAY ==
[2024-02-23 03:13] LABS: CT PCR NOT DETECTED (Not Detect.); NG PCR NOT DETECTED (Not Detect.)
[2024-02-23 08:26] LABS: Bacterial Vaginosis PCR POSITIVE (Negative); Candida Group PCR DETECTED (Not Detect); Candida glab krusei PCR NOT DETECTED (Not Detect); Trichomonas vaginalis PCR NOT DETECTED (Not Detect)
== END 2024-02-22 14:29 | disposition home or self-care (01) ==
LOC: HO.LNP 14:28
PROVIDERS: PCP Internal Medicine; Visit Provider Advanced Practice Midwife
DX: B37.31 Acute candidiasis of vulva and vagina (principal); N89.8 Other specified noninflammatory disorders of vagina; Z11.3 Encounter for screening for infections with a predominantly sexual mode of transmission
CPT/HCPCS: 0352U; 87491; 87591; 99212

== ENCOUNTER 2024-06-12 12:50 | Outpatient (REF) | payer OTHER, SELFPAY ==
[2024-06-13 02:10] LABS: CT PCR NOT DETECTED (Not Detect.); NG PCR NOT DETECTED (Not Detect.)
[2024-06-13 08:35] LABS: Bacterial Vaginosis PCR POSITIVE (Negative); Candida Group PCR DETECTED (Not Detect); Candida glab krusei PCR NOT DETECTED (Not Detect); Trichomonas vaginalis PCR NOT DETECTED (Not Detect)
== END 2024-06-12 12:51 | disposition home or self-care (01) ==
LOC: HO.LAB 12:50
PROVIDERS: PCP Internal Medicine; Visit Provider Advanced Practice Midwife
DX: Z31.9 Encounter for procreative management, unspecified (principal); N89.8 Other specified noninflammatory disorders of vagina; Z20.2 Contact with and (suspected) exposure to infections with a predominantly sexual mode of transmission
CPT/HCPCS: 81515; 87491; 87591; 99212; 99459

== ENCOUNTER 2024-06-12 12:50 | Outpatient (AMB) | payer OTHER, SELFPAY ==
[2024-06-12 13:10] VITALS: BP 126/80; BMI 38.9
--- NOTE | 2024-06-12 13:10 | MHC.OFFVIS ---
Vital Signs 06/12/24 13:10 Height 4 ft 10 in Weight 186 lb BMI 38.9 BP 126/80 Intake Visit Reasons: vag discharge Service Dog Trainer Required: No Service Dog Trainer Services: Service Dog Trainer Present Information Interpreted: clinical only Licensed Acupuncturist: Licensed Acupuncturist Present Allergies No Known Allergies Allergy (Verified 06/12/24 13:13) Medication List - Last Reconciled 06/12/24 by Karis Reese CNM aspirin 81 mg PO DAILY 90 days cholecalciferol (vitamin D3) 50 mcg PO DAILY 90 days escitalopram oxalate 10 mg PO DAILY fluconazole 150 mg PO Q3D 2 doses fluocinonide 0.05% 1 appl topical BID 30 days lorazepam 0.5 mg PO BEDTIME PRN valacyclovir (Valtrex) 500 mg PO BID 3 days Is last menstrual period known: Yes Last menstrual period: 05/23/24 HPI HPI vag discharge: Details: Patient is here for an STD check. She is with a partner who is female transitioning to male and has been with that person for the last 4 years. But she and her partner want to have a baby and so they paid (his) cousin to sell them some ejaculate and they inserted it but she did not get and she has been concerned ever since that maybe she might have caught something and she wants to get checked. She has been watching her cycle and she gets regular cycles and can tell when she ovulates and is correlating the symptoms with what she sees on the ramsey and it is working out. She delivered her last child 10 years ago or 11 years ago at [facility] and she knows that we do not have a birthing center she is on anxiety meds and she knows that if she gets she is to call her provider and discuss having the dosage adjusted or stopped. She used a douche but now does not anymore and now is just paying more attention to her vaginal secretions and is wondering if the differences just that now she is noticing. She described the discharge is kind of whitish and unusual on her fingers. [facility] Medical History Mild major depression Depression Surgical History No pertinent past surgical history Family History Maternal Grandmother Diabetes HTN (hypertension) Family/Other Substance use disorder Mother No problems noted. Social History Housing: Apartment Alcohol intake: current Alcohol intake frequency: holidays/special occasions only Alcohol type: hard liquor Patient Tobacco Use Status: Never used Tobacco e-Cigarette/Vaping Use: Never Used Second Hand Smoke Exposure: No service: No Current occupational status: employed Current occupation: [employer] Current occupational exposures/hazards: No Sexual orientation: Straight/Heterosexual Gender identity: Female Cognitive needs: No Hearing needs: No Vision needs: No Female Reproductive History Menstrual Age of Menarche: 12 Duration of menses: 3-5 days Date of last menstrual period: 05/23/24 Total pregnancies: 1 Full term: 1 Date of last pap smear: 05/10/23 (negative.2020 WNL) Physical Exam Vital Signs: Last Vital Signs BP 126/80 06/12/24 13:10 External Female Exam: normal external appearance and normal appearance of the urethra Speculum Exam - Vagina: normal appearance of the vagina and normal vaginal discharge Speculum Exam - Cervix: normal appearance of the cervix and Cervical os closed Assessment & Plan Assessment & Plan (1) Possible exposure to STD: Code(s): Z20.2 - Contact with and (suspected) exposure to infections with a predominantly sexual mode of transmission Category: Medical (2) Patient desires : Code(s): Z31.9 - Encounter for procreative management, unspecified Category: Medical Plan Discussed patient's plan for getting I recommend she take a multivitamin with folic acid in it as a good measure to try and prevent some neural tube defects.. Discussed that she should decide ahead of time where she would want to go for care and as soon as a pregnancies diagnosed consider going there for care Discussed the screening for the STDs testing done today for gonorrhea chlamydia trichomoniasis as well as bacterial vaginosis and yeast, and I reviewed that bacterial vaginosis and yeast are common findings but are not STDs. She wanted to get blood work as well but it turns out she had blood work ordered in February by me but did not go to the lab and get them done them so she can go downstairs now and get those same labs done for HIV hep B hep C and syphilis. Reviewed that it is mooney to have anyone who is sperm she is going to interact with screened for STDs ahead of time. Also spent some time reviewing her health she said she had no complications in her . She does know that she is O negative and she would need RhoGAM in her Additionally reviewed the changes in vaginal discharge throughout the cycle and did some Education about the different phases and changes. Patient to go to the lab now and then next visit will be for an annual whenever it is due. Coding Level of Care Code Est Pt Level 3 (28935) Diagnoses Possible exposure to STD Z20.2 Patient desires Z31.9
== END 2024-06-12 13:46 | disposition home or self-care (01) ==
PROVIDERS: PCP Internal Medicine; Visit Provider Advanced Practice Midwife
DX: Z20.2 Contact with and (suspected) exposure to infections with a predominantly sexual mode of transmission (principal); Z31.9 Encounter for procreative management, unspecified
CPT/HCPCS: 99213

== ENCOUNTER 2024-06-12 13:49 | Outpatient (REF) | payer OTHER, SELFPAY ==
[2024-06-13 07:57] LABS: Syphilis Screen Nonreactive (Nonreactive)
[2024-06-13 09:11] LABS: HBsAGNum1 0.34 S/CO (0.00-0.99); HIV AB/AG Nonreactive (Nonreactive); HIV Num 1 0.07 S/CO (0.00-0.99); Hepatitis B Surface Antigen Negative (Negative); ~HepC Num1 0.12 S/CO (0.00-0.79); ~Hepatitis C Antibody Nonreactive (Nonreactive)
== END 2024-06-12 13:50 | disposition home or self-care (01) ==
LOC: HO.HHCL 13:49
PROVIDERS: Visit Provider Advanced Practice Midwife
DX: Z11.3 Encounter for screening for infections with a predominantly sexual mode of transmission (principal)
CPT/HCPCS: 36415; 86780; 86803; 87340; 87389

== ENCOUNTER 2024-07-22 11:15 | Outpatient (AMB) | payer OTHER, SELFPAY ==
[2024-07-22 11:20] VITALS: BP 110/66; BMI 38.9
--- NOTE | 2024-07-22 11:20 | MHC.OFFVIS ---
Vital Signs 07/22/24 11:20 Height 4 ft 10 in Weight 186 lb BMI 38.9 BP 110/66 Intake Visit Reasons: Annual/do not adalid Supervisor Die Casting Required: No Information Interpreted: non-clinical & clinical Signaling Design Engineer: Signaling Design Engineer Present (Jes PORTILLO) Accompanied by: Self / Same As Patient Allergies No Known Allergies Allergy (Verified 07/22/24 11:25) Is last menstrual period known: Yes Last menstrual period: 07/13/24 HPI Comments Details: Presenting for annual exam. No complaints. Last Pap was negative in 05/26 [facility] Medical History Mild major depression Depression Surgical History No pertinent past surgical history Family History Maternal Grandmother Diabetes HTN (hypertension) Family/Other Substance use disorder Mother No problems noted. Social History Housing: Apartment Alcohol intake: current Alcohol intake frequency: holidays/special occasions only Alcohol type: hard liquor Patient Tobacco Use Status: Never used Tobacco e-Cigarette/Vaping Use: Never Used Second Hand Smoke Exposure: No service: No Current occupational status: employed Current occupation: [employer] Current occupational exposures/hazards: No Sexual orientation: Straight/Heterosexual Gender identity: Female Cognitive needs: No Hearing needs: No Vision needs: No Female Reproductive History Menstrual Age of Menarche: 12 Date of last menstrual period: 07/13/24 Total pregnancies: 3 Full term: 1 Number of Living Children: 1 Ab induced: 1 Ab spontaneous: 1 Date of last pap smear: 11/06/23 Review of Systems Const All systems reviewed & are unremarkable except as noted in HPI and below Card Reports as per HPI Resp Reports as per HPI GI Reports as per HPI and Reports no additional complaints Reports as per HPI Physical Exam Vital Signs: Last Vital Signs BP 110/66 07/22/24 11:20 BMI result Body Mass Index 38.9 Const General: cooperative, healthy appearing and comfortable Chest Chest palpation & inspection: normal inspection of the chest and normal palpation of entire chest wall Breast/axilla inspection: normal inspection of the breasts and normal inspection of the axillae Breast/axilla palpation: normal palpation of the breasts, normal palpation of the axillae and no axillary lymphadenopathy Resp Effort & Inspection: normal respiratory effort Auscultation: clear to auscultation bilaterally Percussion: percussion normal Cardio Palpation: normal PMI Rate: regular rate Rhythm: regular rhythm Heart sounds: no murmurs and no rubs Peripheral pulses: Peripheral pulses 2+ throughout GI Inspection: Yes normal to inspection Palpation (GI): Soft to palpation, nontender, no guarding, not rigid and No hepatosplenomegaly present Percussion: Yes normal to percussion Auscultation: normal bowel sounds Rectal Exam - Female: deferred General: Yes bladder normal to palpation External Female Exam: No lesion Speculum Exam - Vagina: normal appearance of the vagina, normal palpation, normal vaginal discharge and not erythematous Speculum Exam - Cervix: normal appearance of the cervix and normal palpation Bimanual exam- vagina & uterus: normal bimanual exam, normal palpation, uterine size normal, bladder normal to palpation, consistency normal and normal palpation Bimanual Exam- Adnexa, other: normal adnexae, no masses and no tenderness Assessment & Plan Assessment & Plan (1) Well woman exam: Code(s): Z01.419 - Encounter for gynecological examination (general) (routine) without abnormal findings Category: Medical Plan: Pap smear not indicated this year. Counseled the patient about the recommended dietary allowance of 1000 mg of Calcium & 600 IU of vitamin D. The patient was instructed to perform monthly self-breast exams and to schedule an annual exam in a year; All questions answered and the patient verbalized understanding. Instructed the patient to schedule annual exam in a year Coding Level of Care Code Est Pt Prev Care 18-39y([id number]) Diagnoses Well woman exam Z01.419
--- OUTSIDE RECORDS SUMMARY | 2024-07-22 12:30 | XMS_ITS | Encounter Summary ---
Author Organization [facility] Address [address] [place] [address] Phone Care Team Providers Care Senior Clinical Consultant Name Role Phone Ailyn Bosch DO Primary Care Provider [phone] Encounter Details Date Type Department Care Team (Late st Contact Info) Description 11/24/2014 Documentation [facility] [place] Family Medicine [address] [place] [address] Family Medicine, Physician [address] [place], [place] [id number] Social History Tobacco Use Types Packs/Day Years Used Date Smoking Tobacco: Never Comments:Never smoker Comments Unknown Sex and Gender Information Value Date Recorded Sex Assigned at Not on file Legal Sex Female 4:57 PM EDT Gender Identity Not on file Sexual Orientation Not on file documented as of this encounter Plan of Treatment Not on file documented as of this encounter Visit Diagnoses Not on filedocumented in this encounter Care Teams Senior Clinical Consultant Relationship Specialty Start Date End Date Ailyn Bosch DO [address] [facility] [place] [address] PCP - General 01/12/17 11/08/22 documented as of this encounter
--- OUTSIDE RECORDS SUMMARY | 2024-07-22 12:30 | XMS_ITS | Encounter Summary ---
Author Organization [facility] Address [address] [place] [address] Phone Care Team Providers Care Structural Iron Worker Name Role Phone Ailyn Bosch DO Primary Care Provider [phone] Encounter Details Date Type Department Care Team (Late st Contact Info) Description 06/10/2010 Documentation [facility] [place] Family Medicine [address] [place] [address] Family Medicine, Physician [address] [place] [address] Social History Tobacco Use Types Packs/Day Years Used Date Smoking Tobacco: Never Assessed Comments Unknown Sex and Gender Information Value Date Recorded Sex Assigned at Not on file Legal Sex Female 4:57 PM EDT Gender Identity Not on file Sexual Orientation Not on file documented as of this encounter Plan of Treatment Not on file documented as of this encounter Visit Diagnoses Not on filedocumented in this encounter Care Teams Structural Iron Worker Relationship Specialty Start Date End Date Ailyn Bosch DO [address] [facility] [place] [address] PCP - General 01/12/17 11/08/22 documented as of this encounter
--- OUTSIDE RECORDS SUMMARY | 2024-07-22 12:30 | XMS_ITS | Clinical Summary ---
Author Organization [facility] Address [address] [place] [address] Phone Care Team Providers Care Mounter Name Role Phone Unavailable Primary Care Provider Unavailabl e Immunizations Immunization Administration Dates Next Due DTP 09/14/1997, 6,1995,06/06 DTaP 5 09/08/1999 H1N1 05/14/2009 HPV, Quadrivalent 07/20/2010,06/10/2009,05/12/20 08 Hep A, ped/adol 11/18/2014 Hep B, ped/adol 1995,1995,1995 Hib (PRP-T) 10/06/1996, 6,1995,06/06 IPV 09/08/1999,05/06/1996,1995 Influenza, injectable, quadrivalent 01/23/2012 Influenza, injectable, quadr ivalent, preservative free 02/19/2013 Influenza, injectable, trivalent 05/14/2009,1202/2008 MMR 09/08/1999,05/06/1996 Meningococcal Conj (Menactra) MCV4P 03/06/2007 OPV 10/06/1996 Tdap 08/27/2012,03/06/2007 Varicella 05/12/2008,09/08/1999 Family History Relation Name Status Comments Father Alive Father: Alive a nd well Half-Sister Alive Foster sister: ADD/ADHD Thyroid Mother Alive Mother: Alive a nd well Other Family history of Elevated cholesterol, Family history of Diabetes mellitus, No family history of Thrombophilia Sister 1 Alive Sister: Asthma, Deafness Sister 2 Alive Sister: Asthma, Deafness Social History Tobacco Use Types Packs/Day Years Used Date Smoking Tobacco: Never Comments:Never smoker Comments Unknown Sex and Gender Information Value Date Recorded Sex Assigned at Not on file Legal Sex Female 4:57 PM EDT Gender Identity Not on file Sexual Orientation Not on file Last Filed Vital Signs Vital Sign Reading Time Taken Comments Blood Pressure 108/74 11/18/2014 12:00 AM EDT Pulse 91 11/18/2014 12:00 AM EDT Temperature 36.8 ??C (98.2 ??F) 11/18/2014 12:00 AM E DT Respiratory Rate - - Oxygen Saturation - - Inhaled Oxygen Concentration - - Weight 58.2 kg (128 lb 3.2 oz) 11/18/2014 12:00 AM EDT Height 149.2 cm (4' 10.75 ) 11/18/2014 12:00 AM EDT Body Mass Index 26.12 11/18/2014 12:00 AM EDT Plan of Treatment Health Maintenance Due Date Last Done Comments DTaP,Tdap,and Td Vaccines (8 - Td or Tdap) 08/27/2022 08/27/2012, 03/06/2007, 09/08/1999, Additional history exists Influenza Vaccines (#1) 2024 02/20/20 13, 01/23/2012, 05/14/2009, Additional history exists COVID-19 Vaccine ( season) 2024 Hepatitis B Vaccines Completed 1995, 1995, 1995 HIB Vaccines Completed 10/06/1996, 08/1995, 1995, Additional history exists IPV Vaccines Completed 09/08/1999, 10/1996, 05/06/1996, Additional history exists MMR Vaccines Completed 09/08/1999, 05/06/1996 Meningococcal Vaccine Aged Out 03/06/2007 No ross rosa eligible based on patient's age to complete this topic Varicella Vaccines Completed 05/12/2008, 09/08/1999 HPV Vaccines Completed 07/20/2010, 12/2009, 05/12/2008 Hepatitis A Vaccines Aged Out 11/18/2014 No long er eligible based on patient's age to complete this topic Men B Vaccine Aged Out No longer elig ible based on patient's age to complete this topic Pneumococcal Vaccine Aged Out No long er eligible based on patient's age to complete this topic Procedures * Due to [place] state law, this organization might not be sharing sensitive test results. Procedure Name Priority Date/Time Associated Diagnosis Comments CHLAMYDIA AND GONORRHEA, AMPLIFIED Routine 11/19/2014 3:11 PM EDT from Last 3 Months or Most Recently Relevant to Health Maintenance Results * Due to [place] state law, this organization might not be sharing sensitive test results. * Chlamydia and Gonorrhoea, Amplified (11/19/2014 3:11 PM EDT) URINE CHLAMYDIA AMP PROBE NEGATIVE [facility] Comment: No Chlamydia Trachomatis RNA detected in this patient's sample (REFERENCE RANGE/NORMAL VALUE: NOT DETECTED) URINE GC AMP PROBE NEGATIVE [facility] Comment: No Neisseria Gonorrhoeae RNA detected in this patient's sample (REFERENCE RANGE/NORMAL VALUE: NOT DETECTED) NOTE: This test uses reptile keeper-mediated amplification method to detect rRNA from C.Trachomatis and N.Gonorrhoeae. A negative result does not preclude infection. In the case of a negative urine result, testing of an endocervical(female) or urethral(male) specimen is recommended if there is high clinical suspicion of infection. The performance characteristics of this test have not been evaluated in children. The Aptima Combo2 assay is not intended for the evaluation of suspected sexual abuse or for other medico-legal indications. The ordering provider should assess if the patient had consensual sex without risk of sexual abuse. Consult the [facility] if needed. Contact phone number . Therapeutic failure or success cannot be determined with the Aptima Combo2 assay since nucleic acid may persist following appropriate antimicrobial therapy. The Centers for Disease Control and Prevention (CDC) recommends confirmatory retesting using culture or a different nucleic acid amplification test when positive results occur, if indicated. Testing performed or reported by [facility], a Service of [facility], [address] [place] [id number] Eloy Baires MD, PhD, Advertising Dispatch Clerk 11/19/2014 3:11 PM EDT Narrative [facility] - 11/19/2014 3:11 PM EDT URINE CHLAMYDIA GC AMP PROBE us Ailyn Bosch DO LAB MICROBIOLOGY - GENERAL ORDER SUZANNA Final Result [facility] [address] [place] [id number], [place] from Last 3 Months or Most Recently Relevant to Health Maintenance
--- OUTSIDE RECORDS SUMMARY | 2024-07-22 12:30 | XMS_ITS | Encounter Summary ---
Author Organization [facility] Address [address] [place] [address] Phone Care Team Providers Care Vector Control Specialist Name Role Phone iAlyn Bosch DO Primary Care Provider [phone] Encounter Details Date Type Department Care Team (Late st Contact Info) Description 01/18/2017 Conversion Encounter [facility] [place] [address] [place] [address] Social History Tobacco Use Types Packs/Day Years [...] on filedocumented in this encounter Care Teams Vector Control Specialist Relationship Specialty Start Date End Date Ailyn Bosch DO [address] [place] [address] PCP - General 01/12/17 11/08/22 documented as of this encounter
--- OUTSIDE RECORDS SUMMARY | 2024-07-22 12:30 | XMS_ITS | Encounter Summary ---
Author Organization [facility] Address [address] [place] [address] Phone Care Team Providers Care Disaster Director Name Role Phone Ailyn Bosch DO Primary Care Provider [phone] Encounter Details Date Type Department Care Team (Late st Contact Info) Description 06/14/2010 Documentation [facility] [place] Family Medicine [address] [place] [address] Family Medicine, Physician [address] [place] [address] Social History Tobacco Use Types [...] on filedocumented in this encounter Care Teams Disaster Director Relationship Specialty Start Date End Date Ailyn Bosch DO [address] [facility] [place] [address] PCP - General 01/12/17 11/08/22 documented as of this encounter
--- OUTSIDE RECORDS SUMMARY | 2024-07-22 12:30 | XMS_ITS | Encounter Summary ---
Author Organization [facility] Address [address] [place] [address] Phone Care Team Providers Care Supervisor Border Department Name Role Phone Ailyn Bosch DO Primary Care Provider [phone] Encounter Details Date Type Department Care Team (Late st Contact Info) Description 09/14/2010 Documentation [facility] [place] Family Medicine [address] [place] [address] Family Medicine, Physician [address] [place] [address] Social History Tobacco Use Types [...] on filedocumented in this encounter Care Teams Supervisor Border Department Relationship Specialty Start Date End Date Ailyn Bosch DO [address] [facility] [place] [address] PCP - General 01/12/17 11/08/22 documented as of this encounter
== END 2024-07-22 11:49 | disposition home or self-care (01) ==
LOC: HO.HWS 11:15
PROVIDERS: PCP Internal Medicine; Visit Provider Obstetrics & Gynecology
DX: Z01.419 Encounter for gynecological examination (general) (routine) without abnormal findings (principal)
CPT/HCPCS: 99395; 99459

== ENCOUNTER → 2024-07-22 11:15 | Outpatient (BNVA) | payer OTHER, SELFPAY | PROVIDERS: PCP Internal Medicine; Visit Provider Obstetrics & Gynecology | DX: Z01.419 Encounter for gynecological examination (general) (routine) without abnormal findings (principal) | CPT/HCPCS: 99395; 99459 ==

== ENCOUNTER 2024-11-11 09:57 | Outpatient (REF) | payer OTHER, SELFPAY ==
[2024-11-11 11:01] LABS: MANUAL DIFF FLAG NO
[2024-11-11 11:24] LABS: Basophils Percent Auto 0.6 % (0-2); Eosinophils Absolute Auto 0.1 X10*3/uL (0.0-0.4); Eosinophils Percent Auto 1.3 % (0-4); Hematocrit 37.5 % (37.0-47.0); Hemoglobin 12.7 g/dl (12.0-16.0); Imm Gran Abs Auto 0.02 X10*3/uL (0.00-0.03); Imm Gran Pct Auto 0.3 % (0.0-0.4); Lymphocytes Absolute Auto 1.9 X10*3/uL (1.2-4.9); Lymphocytes Percent Auto 29.4 % (20-40); Mean Corpuscular HGB Conc 33.9 g/dl (31.0-35.0); Mean Corpuscular Hemoglobin 29.5 pg (27.0-33.0); Monocytes Absolute Auto 0.6 X10*3/uL (0.1-1.2); Monocytes Percent Auto 8.9 % (2-11); Neutrophils Absolute Auto 3.8 x10*3/uL (2.0-8.3); Neutrophils Percent Auto 59.5 % (45-73); Platelet Count 317 X10*3/uL (160-400); Red Blood Count 4.31 X10*6/uL (4.20-5.50); Red Cell Distribution Width 12.3 % (11.0-16.0); White Blood Count 6.4 X10*3/uL (4.8-10.8)
[2024-11-11 11:41] LABS: Alanine Aminotransferase 13 U/L (0-31); Albumin Level 4.5 g/dL (3.5-5.0); Alkaline Phosphatase 51 U/L (39-117); Anion Gap 10 (12-20); Aspartate Amino Transferase 18 U/L (5-31); Bilirubin Total 0.5 mg/dL (0.0-1.0); Blood Urea Nitrogen 10 mg/dL (9-16); Calcium 9.3 mg/dL (8.4-10.2); Carbon Dioxide 26 mmol/L (22-29); Chloride 109 mmol/L (96-108); Cholesterol 116 mg/dL (<200); Estimated Glomerular Filt Rate > 60; Glucose Fasting 93 mg/dL (60-99); HDL Cholesterol 42 mg/dL (>40); LDL Cholesterol Calculated 62 mg/dL (<100); Potassium 4.2 mmol/L (3.3-5.1); Sodium 141 mmol/L (135-145); Triglycerides 64 mg/dL (<150)
== END 2024-11-11 09:58 | disposition home or self-care (01) ==
LOC: HO.LAB 09:57
PROVIDERS: PCP Internal Medicine; Visit Provider Internal Medicine
DX: Z00.01 Encounter for general adult medical examination with abnormal findings (principal); Z23 Encounter for immunization; F32.0 Major depressive disorder, single episode, mild; L40.9 Psoriasis, unspecified
CPT/HCPCS: 36415; 80053; 80061; 85025; 90471; 90715; 96127; 99212; 99395

== ENCOUNTER 2024-11-11 09:57 | Outpatient (AMB) | payer OTHER, SELFPAY ==
[2024-11-11 10:01] VITALS: BP 110/84; PULSE 101; O2SAT 98; BMI 39.4
--- NOTE | 2024-11-11 10:01 | A.OFFPC_ITS ---
Vital Signs 11/11/24 10:01 Height 4 ft 10 in Weight 188 lb 6 oz BMI 39.4 BP 110/84 Blood Pressure Location Lt brachial Position Sitting Pulse 101 H Pulse Source Pulse Oximeter Pulse Oximetry (%) 98 Oxygen Delivery Method Room Air Intake Visit Reasons: Annual Exam Supervisor Statement Clerks Required: No Accompanied by: Mother Allergies No Known Allergies Allergy (Verified 11/11/24 10:02) Tobacco use date assessed: 11/11/24 Dental Screening Dental Screen Date: 11/11/24 Did you have a dental visit in the last 12 months?: Yes Did you have a dental problem in the last 6 months where you did not have access to dental care?: No Was dental information given to patient?: Patient has dentist HPI HPI Comments History of Present Illness Details The patient is a 29-year-old female presenting with a need for a physical exam and Tdap vaccination. She has a medical history of thrombophlebitis in the right elbow, previously managed with baby aspirin, though it was not currently exacerbated. Additionally, she reports low vitamin D, but there was no detailed discussion of current management or supplementation. Psoriasis is a current concern, and she requested a referral to dermatology. Recent preventative screening, such as a Pap smear in 2022, was normal. The patient denies symptoms including chest pain or shortness of breath and has shown an interest in continuing care for her existing conditions, particularly psoriasis. - Tdap vaccination to be administered du ring this visit. - Pap smear was normal in 2022. - Discussion surrounding referral to giovany matology for psoriasis management. [facility] Medical History (Updated 11/11/24 @ 10:25 by Lore Contreras MD) Mild major depression Depression Surgical History (Updated 11/11/24 @ 10:25 by Lore Contreras MD) Lipoma Family History (Updated 11/11/24 @ 10:26 by Lore Contreras MD) Maternal Grandmother Diabetes HTN (hypertension) Family/Other Substance use disorder Mother No problems noted. Father No problems noted. Social History Housing: Apartment Alcohol intake: current Alcohol intake frequency: holidays/special occasions only Alcohol type: hard liquor Patient Tobacco Use Status: Never used Tobacco e-Cigarette/Vaping Use: Never Used Second Hand Smoke Exposure: No service: No Current occupational status: employed Current occupation: [employer] Current occupational exposures/hazards: No Sexual orientation: Straight/Heterosexual Gender identity: Female Cognitive needs: No Hearing needs: No Vision needs: No Female Reproductive History Menstrual Age of Menarche: 12 Questionnaire PHQ-9 Over the last 2 weeks, how often have you been bothered by any of the following problems? 1. Little interest or pleasure in doing things: several days 2. Feeling down, depressed, or hopeless: nearly every day 3. Trouble falling or staying asleep, or sleeping too much: nearly every day 4. Feeling tired or having little energy: more than half the days 5. Poor appetite or overeating: nearly every day 6. Feeling bad about yourself - or that you are a failure or have let yourself or your family down: more than half the days 7. Trouble concentrating on things, such as reading the newspaper or watching television: several days 8. Moving or speaking so slowly that other people could have noticed. Or the opposite - being so fidgety or restless that you have been moving around a lot more than usual: not at all 9. Thoughts that you would be better off or of hurting yourself in some way: not at all Total score: 15 Depression Screening Interpretation: Positive Depression Screening Follow-up: Existing condition, Community Mental Health Worker F/U and Follow-up Visit Requested Depression Screening Done: Yes 71036 - PHQ-9 Billing: Yes Source: Developed by Drs. Piero Ren, Mariely Meyer, Cristiano Manzano and colleagues, with an educational kenji from [employer]. Thrive Questionnaire Date Thrive assessed: 11/11/24 I am a: Patient What is your living situation today?: I have a steady place to live Within the past 12 months, did the food you bought not last and you didn't have the money to get more?: Never true Within the past 12 months, did you worry whether your food would run out before you got money to buy more?: Never true Do you have trouble paying for medicines?: No Do you have trouble getting transportation to medical appointments?: No Do you have trouble paying your heating and electricity bill?: No Do you have trouble taking care of your child, family member or friend?: No Do you have trouble with day-to-day activities such as bathing, preparing meals, shopping, managing finances, etc.?: No Are you currently unemployed and looking for a job?: No Are you interested in more education?: No Please select the resources that you would like help with: None Currently or been in a relationship where the following occur: No concerns reported THRIVE Score: 0 AUDIT C Alcohol Use Questionnaire (AUDIT-C) 1. How often do you have a drink containing alcohol?: Monthly or less 2. How many drinks containing alcohol do you have on a typical day when you are drinking?: 1 or 2 3. How often do you have six or more drinks on one occasion?: Never Total Score: 1 Score Reviewed/Action Taken: No YAJAIRA-7 AMB Questionnaire YAJAIRA-7 Date YAJAIRA - 7 assessed: 11/11/24 Feeling nervous, anxious, or on edge: 1 = Several days Not being able to stop or control worryin = More than half the days Worrying too much about different things: 1 = Several days Trouble relaxin = Several days Being so restless that it is hard to sit still: 1 = Several days Becoming easily annoyed or irritable: 2 = More than half the days Feeling afraid as if something awful might happen: 2 = More than half the days Total YAJAIRA-7 score (0-4 normal; 5-9 mild; 10-14 moderate; 15-21 severe): 10 Source: Developed by Drs. Piero Ren, Mariely Meyer, Cristiano Manzano and colleagues, with an educational kenji from [employer]. YAJAIRA-7 Assessment Billing YAJAIRA-7 Assessment Tool: YAJAIRA-7 Assessment 96823 Review of Systems Const All systems reviewed & are unremarkable except as noted in HPI and below Card Denies chest pain at rest, Denies chest pain with activity, Denies edema, Denies irregular heart rhythm, Denies claudication, Denies dyspnea, Denies dyspnea on exertion, Denies orthopnea, Denies paroxysmal nocturnal dyspnea and Denies slow heart rate Resp Denies cough, Denies dyspnea and Denies dyspnea on exertion GI Denies abdominal pain, Denies change in bowel habits, Denies excessive flatus, Denies nausea and Denies vomiting Denies urinary incontinence, Denies urinary hesitancy and Denies urinary urgency Musc Denies abnormal gait, Denies atrophy, Denies deformity and Denies limited range of motion Skin/Breast Denies bleeding lesions, Denies changing lesions and Denies rash Neuro Denies abnormal gait and Denies lack of coordination Physical exam (Primary Care) Vital Signs: Last Vital Signs Pulse 101 H 11/11/24 10:01 BP 110/84 11/11/24 10:01 Pulse Ox 98 11/11/24 10:01 Oxygen Delivery Method Room Air 11/11/24 10:01 BMI result Body Mass Index 39.4 BMI Assessment/Plan discussion: High BMI High, discussed plan: lifestyle, weight reduction, dietary and physical activity Tobacco/Smoking Status: Tobacco use Status Tobacco use date assessed 11/11/24 11/11/24 10:07 Patient Tobacco Use Status Never used Tobacco 11/11/24 10:07 e-Cigarette/Vaping Use Never Used 11/11/24 10:07 PHQ-9: PHQ-9 Score PHQ-9: Total score 15 11/11/24 10:39 Depression Screening Interpretation: Positive Depression Screening Follow-up: Existing condition, Community Mental Health Worker F/U and Follow-up Visit Requested Thrive Assessment: Date of Thrive Assessment Date Thrive assessed 11/11/24 11/11/24 10:07 Currently or been in a relationship where the following occur: No concerns reported HENMT Head: Yes normal to inspection, Yes normocephalic and Yes atraumatic Ears: external ears normal Eyes General: appearance normal, both eyes and all related structures Eyelids: Yes eyelids normal Conjunctivae: conjunctivae normal Neck Neck: Yes normal visual inspection and Yes supple Resp Effort & Inspection: normal respiratory effort Auscultation: clear to auscultation bilaterally Cardio Jugular venous distension: no JVD Rate: regular rate Rhythm: regular rhythm Heart sounds: S1 normal heart sound present and S2 normal heart sound present GI Inspection: Yes normal to inspection Palpation (GI): Soft to palpation and nontender Auscultation: normal bowel sounds Skin General skin exam: no rashes or lesions noted Neuro General: no focal motor deficits Extrem General: Yes full ROM Psych Appearance: grossly normal Immunizations Boostrix Tdap 2.5 Lf unit-8 mcg-5 Lf/0.5 mL intramuscular syringe Performing Provider: Lore Contreras MD [place] [facility] Administered by: BANDAR Alvarado on 11/11/24 10:39 Dose Route Admin Location Dispensed Lot Number Expiration Date NDC Tube Depatcher 0.5 mL IM Left Deltoid 0.5 mL [id number] 01/31/27 53863-654-13 [employer] VIS Given Date VIS Provided VIS Publication Date 11/11/24 Single Vaccine 21 Eligibility Eligibility Date Funding Source Not [facility] Eligible 11/11/24 Private Coding Level of Care Code Est Pt Level 3 (95205) Est Pt Prev Care 18-39y(17807) Diagnoses Physical exam Z00.00 Mild major depression F32.0 Psoriasis L40.9 Additional Codes YAJAIRA-7 Assessment Billing - YAJAIRA-7 Assessment Tool: YAJAIRA-7 Assessment 54862 ([id number]) PHQ-9 - 57523 - PHQ-9 Billing: Yes ([id number]) Time Spent (min) 33 Assessment & Plan Assessment & Plan (1) Physical exam: Code(s): Z00.00 - Encounter for general adult medical examination without abnormal findings Category: Medical (2) Mild major depression: Code(s): F32.0 - Major depressive disorder, single episode, mild Category: Medical (3) Psoriasis: Code(s): L40.9 - Psoriasis, unspecified Category: Medical Plan Monitoring of the patient's thrombophlebitis will continue, though no current exacerbations necessitate further intervention. For her low vitamin D, considera tions for management will involve lifestyle or dietary modifications. The patient expressed a desire for a dermatology referral for psoriasis, which will be facilitated. Her immunization will be updated with the administration of the Tdap vaccine during this visit. Patient was informed and verbally consented to the use of an ambient scribe for clinic note documentation during this visit. I discussed with the patient the importance of her Tdap vaccination, which is to be administered today. We reviewed her past medical history, particularly thrombophlebitis, and her management of these conditions, including the importance of monitoring in the absence of exacerbation. We addressed the management of her low vitamin D levels with potential lifestyle or dietary changes. For psoriasis management, I discussed a referral to dermatology, ensuring she understands the potential benefits of specialized care. There were no immediate concerns related to her chronic conditions, and I emphasized the importance of following up as needed with any changes in her health status. Orders: Orders Comprehensive [place]. Panel Fast Today Z00.00 - Encounter for general adult medical examination without abnormal findings TDaP Immunization Today Z23 - Encounter for immunization Lipid Panel Today Z00.00 - Encounter for general adult medical examination without abnormal findings Complete Blood Count Auto Diff Today L40.9 - Psoriasis, unspecified Referrals Dermatology Referral L40.9 - Psoriasis, unspecified Medications: New triamcinolone acetonide 0.1% 1 appl topical DAILY 30 grams 2RF 2 weeks L40.9 - Psoriasis, unspecified Patient Instructions: - Receive Tdap vaccine today. - Follow up with proposed dermatology referral for psoriasis management. - Monitor for any new symptoms related to thrombophlebitis. - Consider dietary or lifestyle changes for Vitamin D optimization.
--- OUTSIDE RECORDS SUMMARY | 2024-11-11 11:20 | XMS_ITS | Encounter Summary ---
Author Organization [facility] Address [address] [place] [id number] Phone Care Team Providers Care Ferryboat Captain Name Role Phone Ailyn Bosch DO Primary Care Provider [phone] Encounter Details Date Type Department Care Team (Late st Contact Info) Description 09/14/2010 Documentation [facility] Family Medicine [address] [place] [address] Family Medicine, Physician [address] [place] [address] Social History Tobacco Use Types [...] on filedocumented in this encounter Care Teams Ferryboat Captain Relationship Specialty Start Date End Date Ailyn Bosch DO [address] [facility] [place] [address] PCP - General 01/12/17 11/08/22 documented as of this encounter
== END 2024-11-11 10:51 | disposition home or self-care (01) ==
LOC: HO.HMCH 09:58
PROVIDERS: PCP Internal Medicine; Visit Provider Internal Medicine
DX: Z00.00 Encounter for general adult medical examination without abnormal findings (principal); F32.0 Major depressive disorder, single episode, mild; L40.9 Psoriasis, unspecified; Z23 Encounter for immunization

== ENCOUNTER 2024-12-13 13:02 | Emergency (ER) | payer OTHER, SELFPAY ==
--- NOTE | ~2024-12-13 | XR_ITS ---
CLINICAL HISTORY: rule out SBO Radiographs of the abdomen 2 views Comparison: None provided Findings: Number of films: 2. No abnormal bowel dilatation. Mild amount of retained stool in the ascending colon. No free air. No radiopaque foreign body. No radiopaque renal or ureteral calculus. No acute osseous abnormality. Impression: 1. Nonobstructive bowel gas pattern. This document has been electronically signed by: Martina Domingo DO on 12/13/2024 14:27:24
[2024-12-13 13:04] VITALS: BP 137/96; PULSE 99; RESP 20; TEMP 37; O2SAT 100; BMI 31.1
--- NOTE | 2024-12-13 13:11 | ED_ITS ---
HPI - Abdominal Pain General Chief Complaint: Abdominal Pain Stated Complaint: L sided pain Time Seen by Provider: 12/13/24 17:46 Source: patient Mode of arrival: ambulatory Limitations: no limitations History of Present Illness ED Provider: RENETTA Hernandez HPI narrative: Patient presents to our emergency department today for evaluation of abdominal pain in setting of chronic constipation. She had a rapid medical exam done by myself width a thorough history see course for full HPI. MD elicited complaint: abdominal pain Related Data Home Medications ?Medication ?Instructions ?Recorded ?Confirmed lorazepam 0.5 mg tablet 0.5 mg PO BEDTIME PRN 06/12/24 escitalopram oxalate 10 mg tablet 10 mg PO DAILY 05/0206/12/24 Previous Rx's ?Medication ?Instructions ?Recorded cholecalciferol (vitamin D3) 50 50 mcg PO DAILY 90 day s #90 caps 11/05/23 mcg (2,000 unit) capsule aspirin 81 mg tablet,delayed 81 mg PO DAILY 90 days #9 0 tabs 12/25/23 release fluocinonide 0.05 % topical gel 1 appl topical BID 30 days #30 05/20/24 grams betamethasone dipropionate 0.05 % 1 appl topical DAILY 2 weeks #15 07/07/24 topical ointment grams valacyclovir 500 mg tablet 500 mg PO BID 3 days #6 tab s 11/06/24 (Valtrex) triamcinolone acetonide 0.1 % 1 appl topical DAILY 2 w eeks #30 11/11/24 topical cream grams dicyclomine 10 mg capsule 10 mg PO QID colonic spasms #28 12/13/24 caplets Allergies Allergy/AdvReac Type Severity Reaction Status Date / Time No Known Allergies Allergy Verified 12/13/24 13:04 Review of Systems Review of Systems Yes all other systems are reviewed and are negative PMFSH Past Medical History Attestation statement: The following information was validated with the patient. Source: old records reviewed and nursing notes reviewed Medical History Mild major depression Depression Surgical History Lipoma Family History Family History Maternal Grandmother Diabetes HTN (hypertension) Family/Other Substance use disorder Mother No problems noted. Father No problems noted. Social History Social History Housing: Apartment Alcohol intake: current Alcohol intake frequency: holidays/special occasions only Alcohol type: hard liquor Patient Tobacco Use Status: Never used Tobacco e-Cigarette/Vaping Use: Never Used Second Hand Smoke Exposure: No Advance Directives: No Advance Directives Information Provided: No service: No Current occupational status: employed Current occupation: [employer] Current occupational exposures/hazards: No Sexual orientation: Straight/Heterosexual Gender identity: Female Cognitive needs: No Hearing needs: No Vision needs: No Physical Exam ED Vital Signs: Vital Signs - 24 hr 12/13/24 13:04 12/13/24 16:22 12/13/24 18:10 Temperature 98.6 F 97 F 97 F Pulse Rate 99 93 93 Respiratory Rate 20 20 20 Blood Pressure 137/96 H 121/94 H 121/94 H Pulse Oximetry 100 100 100 Oxygen Delivery Method Room Air Room Air Room Air BMI result Body Mass Index 31.1 General: Appears in no acute distress, appears well nourished body habitus is obese, appears stated age. No septic or ill-appearing. Vitals reviewed normal, PMH/Social and Surgical hx reviewed including allergies and current medications. - reviewed for prior visits here Head: Normocephalic, no obvious trauma or skin lesions noted. Eyes: EOMI ENMT: moist oral mucosa Neck: trachea midline Cardiovascular: peripheral perfusion normal, Regular heart rate Respiratory: no respiratory distress Abdomen: nondistended Extremities: warm and moving without difficulty unless otherwise detailed in physical exam if applicable. Psych: Cooperative Neuro: Alert and oriented. Const Other: General: Appears in no acute distress, appears well nourished body habitus is obese, appears stated age. No septic or ill-appearing. Vitals reviewed normal, PMH/Social and Surgical hx reviewed including allergies and current medications. - reviewed for prior visits here and not red isn't does not pertain to similar chief complaint. Head: Normocephalic, no obvious trauma or skin lesions noted. Eyes: EOMI ENMT: moist oral mucosa Neck: trachea midline Cardiovascular: peripheral perfusion normal, Regular heart rate Respiratory: no respiratory distress Abdomen: nondistended but obese no CVA tenderness negative Cleaning's no peritoneal signs no rebound or guarding Extremities: warm and moving without difficulty Psych: Cooperative Neuro: Alert and oriented. General: cooperative Course Course Course Narrative: This is a RME preformed in triage by Julianna Chaudhry PA-C. Date: 12/13/24, time 1:10 pm. Patient presents with abdominal discomfort of the left anterior periumbilical flank and region. Chronic history of constipation never addressed with regulation of medicine daily or by gastroenterology. Patient states that she can go up to 2 weeks on a regular basis without having a bowel movement she wakes until she is backed up and then starts taking [id number] laxatives such as MiraLax. She has been doing that for the last 3 days and having BMs and passing flatus but this feels different to her she feels like something is just moving/wiggling she denies any pain no nausea or vomiting. She has been without any fevers and no backache no symptoms. Stool is loose no blood. No history of abdominal surgeries. No trauma. Work UP: abd labs and U/A abd series xray Will defer full ROS and PE to treating provider- as I became the treating provider no additional history taken exam repeated benign benign abdomen. 424 pm: rechecked, U/A preg still pending, labs so far without evidence of ABBY, leukocytosis, hepatobiliary disease, or pancreatitis. Imaging upright without evidence of stool burden or SBO. remains afebrile. Medical Decision Making Medical Decision Making [facility] Narrative: Well-appearing 29-year-old female presenting to the emergency department today for evaluation of left anterior periumbilical abdominal pain. RME done upon arrival to ED by me. See note for details so as to not be repetitive. Given chief complaint abdominal pain abdominal labs were initiated along with abdominal series x-ray imaging. Abdomen is soft and nontender. LEs concerning for acute abdomen. Patient's labs were reassuring no evidence of leukocytosis, anemia, electrolyte imbalance, metabolic dysfunction, ABBY, liver kidney dysfunction or hepatobiliary disease. Imaging shows no evidence of SBO other stool burden. Her abdomen continues to be soft and nontender. Given her presentation in not being toxic or ill we will address patient's symptoms of crampy like pain with Bentyl. She has been advised to follow up with Gastroenterology given the chronicity of her constipation. We discussed with the reasons for her to return to the ED. patient demonstrated verbal understanding of plan and agreed she was discharged home stable Differential Diagnosis Differential Diagnoses: The differential diagnosis associated with the presentation includes see [facility] Admission/Observation Consideration of admission/observation: Escalation of care including admission/observation considered Patient would have been admitted to the hospital had her work up had any findings where hospital admission was appropriate and her clinical presentation warranted hospital admission. Lab Data [facility] Lab Attestation statement: I reviewed the patient's lab results. 12/13/24 13:36 12/13/24 13:36 Labs: Lab Results 12/13/24 12/13/24 Range/Units 13:36 16:31 WBC 6.8 (4.8-10.8) X10*3/uL RBC 4.44 (4.20-5.50) X10*6/uL Hgb 13.3 (12.0-16.0) g/dl Hct 37.7 (37.0-47.0) % MCV 84.9 (80.0-98.0) fL MCH 30.0 (27.0-33.0) pg MCHC 35.3 H (31.0-35.0) g/dl RDW 12.4 (11.0-16.0) % Plt Count 316 (160-400) X10*3/uL MPV 8.8 L (9.4-12.3) fL Immature Gran % (Auto) 0.1 (0.0-0.4) % Neut % (Auto) 64.6 (45-73) % Lymph % (Auto) 27.1 (20-40) % [place] % (Auto) 7.1 (2-11) % Eos % (Auto) 0.7 (0-4) % Baso % (Auto) 0.4 (0-2) % Lymph # (Auto) 1.8 (1.2-4.9) X10*3/uL [place] # (Auto) 0.5 (0.1-1.2) X10*3/uL Eos # (Auto) 0.1 (0.0-0.4) X10*3/uL Baso # (Auto) 0.0 (0.0-0.2) X10*3/uL Abs Immat Gran (auto) 0.01 (0.00-0.03) X10*3/uL Absolute Neuts (auto) 4.4 (2.0-8.3) x10*3/uL Absolute Nucleated RBC 0.000 (0.0-0.012) X10*3/uL Nucleated RBC % (auto) 0.0 (0.0-0.2) /100WBC Sodium 138 (135-145) mmol/L Potassium 3.9 (3.3-5.1) mmol/L Chloride 107 (96-108) mmol/L Carbon Dioxide 25 (22-29) mmol/L Anion Gap 10 L (12-20) BUN 13 (9-16) mg/dL Creatinine 0.90 (0.5-1.4) mg/dL Estim Creat Clear Calc 99.1 Estimated GFR > 60 Fasting Glucose 102 H (60-99) mg/dL Calcium 9.0 (8.4-10.2) mg/dL Magnesium 2.0 (1.6-2.6) mg/dL Total Bilirubin 0.6 (0.0-1.0) mg/dL AST 17 (5-31) U/L ALT 14 (0-31) U/L Alkaline Phosphatase 57 (39-117) U/L Total Protein 7.3 (6.5-8.0) g/dL Albumin 4.6 (3.5-5.0) g/dL Lipase 25 (8-78) U/L Urine Color Yellow Urine Appearance Clear Urine pH 5.5 (5.0-9.0) Ur Specific [place] 1.025 (1.005-1.025) Urine Protein Negative (Neg-Trace) mg/dL Urine Glucose (UA) Negative (Negative) mg/dL Urine Ketones Negative (Negative) mg/dL Urine Blood Small (1+) H (Negative) Urine Nitrite Negative (Negative) Ur Leukocyte Esterase Negative (Negative) Urine RBC 0-2 (0-2) /HPF Urine WBC 0-5 (0-5) /HPF Ur Squamous Epith Cells 11-20 (0-2) /HPF Urine Bacteria 1+ (None Seen) Hyaline Casts 0-2 (0-2) /LPF Urine Test NEGATIVE (NEGATIVE) Independent Interpretation I performed an independent interpretation of an: Plain X-Ray Radiology Impression Discussion of test interpretation with radiology: I have reviewed the radiologist's reading. Tests considered The following testing was considered but not selected: Would have considered a CT of the abdomen had I then clinically concerned for kidney stone versus intra-abdominal pathology such as acute abdomen however as it remains soft and nontender was deferred Prescription Management I considered prescription management with: Pain Medication Chronic Conditions Patient?s care impacted by: Other (Obesity and constipation) Discharge Plan Discharge Clinical Impression: Abdominal pain, Constipation Patient Disposition: Home, Self-Care Instructions: Constipation (ED) Additional Instructions: You were seen in the emergency department today due to cramp like abdominal pain. You had both abdominal labs along with a urinalysis that showed no evidence of liver or kidney dark bowel dysfunction. Urinalysis shows no evidence of bladder infection. He also had imaging done that showed no evidence of a bowel obstruction or significant stool burden. Overall reassuring impression today. He will be provided he was medicine that helps her colon be less spasmodic. However, some abdominal problems may take more time to appear. Therefore, it is important for you to watch for any new symptoms or worsening of your current condition.? Please follow up with your primary care physician as needed. If you do not have a primary doctor, you can call your insurance company to find one.? If you do not have insurance, you can go to the finance/registration department for more assistance. Maintain a high-fiber diet and drink plenty of fluids.? Stay active with exercise.? Start a fiber supplement like Metamucil which you can get [id number] at any pharmacy.? Plan on using a fiber supplement long-term.? Use a Dulcolax suppository every 48 hours as needed if you have not had a bowel movement. Return to the Emergency Department if you experience worsening pain, persistent fevers greater than 100.4, recurrent vomiting, blood in vomit, blood in stool, dark tarry stool, chest pain, difficulty breathing, or any other concerning symptoms.? Prescriptions: New dicyclomine 10 mg capsule 10 mg PO QID Qty: 28 0RF No Action cholecalciferol (vitamin D3) 50 mcg (2,000 unit) capsule 50 mcg PO DAILY 90 Days Qty: 90 1RF aspirin 81 mg tablet,delayed release (DR/EC) 81 mg PO DAILY 90 Days Qty: 90 3RF fluocinonide 0.05 % gel 1 appl topical BID 30 Days Qty: 30 2RF betamethasone dipropionate 0.05 % ointment 1 appl topical DAILY 14 Days Qty: 15 1RF valacyclovir [Valtrex] 500 mg tablet 500 mg PO BID 3 Days Qty: 6 6RF Rx Instructions: Take 1 tablet twice a day for 3 days as needed for outbreak lorazepam 0.5 mg tablet 0.5 mg PO BEDTIME PRN escitalopram oxalate 10 mg tablet 10 mg PO DAILY triamcinolone acetonide 0.1 % cream 1 appl topical DAILY 14 Days Qty: 30 2RF Referrals: [facility] [place] [facility] [Provider Group, Gastroenterology] Referral Note: chronic constipation for years Lore Glynn MD [Primary Care Provider, Internal Medicine] Referral Note: follow up on chronic constipation Interventions: ED Discharge Assessment Last Done: 12/13/24 18:10 Discharge Date/Time: 12/13/24 18:13 Print Language: [place]
[2024-12-13 13:41] LABS: MANUAL DIFF FLAG NO
[2024-12-13 13:42] LABS: Hematocrit 37.7 % (37.0-47.0); Hemoglobin 13.3 g/dl (12.0-16.0); Imm Gran Abs Auto 0.01 X10*3/uL (0.00-0.03); Imm Gran Pct Auto 0.1 % (0.0-0.4); Lymphocytes Absolute Auto 1.8 X10*3/uL (1.2-4.9); Mean Corpuscular HGB Conc 35.3 g/dl (31.0-35.0); Mean Corpuscular Hemoglobin 30.0 pg (27.0-33.0); Mean Corpuscular Volume 84.9 fL (80.0-98.0); NRBC Abs Auto 0.000 X10*3/uL (0.0-0.012); NRBC Pct Auto 0.0 /100WBC (0.0-0.2); Platelet Count 316 X10*3/uL (160-400); Red Blood Count 4.44 X10*6/uL (4.20-5.50); White Blood Count 6.8 X10*3/uL (4.8-10.8)
[2024-12-13 13:56] LABS: Alanine Aminotransferase 14 U/L (0-31); Albumin Level 4.6 g/dL (3.5-5.0); Alkaline Phosphatase 57 U/L (39-117); Anion Gap 10 (12-20); Aspartate Amino Transferase 17 U/L (5-31); Blood Urea Nitrogen 13 mg/dL (9-16); Calcium 9.0 mg/dL (8.4-10.2); Carbon Dioxide 25 mmol/L (22-29); Chloride 107 mmol/L (96-108); Creatinine Clr Calc Pharmacy 99.1; Estimated Glomerular Filt Rate > 60; Lipase 25 U/L (8-78); Magnesium 2.0 mg/dL (1.6-2.6); Potassium 3.9 mmol/L (3.3-5.1); Sodium 138 mmol/L (135-145); Total Protein 7.3 g/dL (6.5-8.0)
[2024-12-13 16:22] VITALS: BP 121/94; PULSE 93; RESP 20; TEMP 36.1; O2SAT 100
[2024-12-13 16:37] LABS: Appearance Urine Clear; Glucose Urine UA Negative (Negative); PH 5.5 (5.0-9.0); Specific Gravity - Urine 1.025 (1.005-1.025); UMIC TRIGGER UACC YES
[2024-12-13 16:38] LABS: UPreg QC Valid YES
[2024-12-13 18:10] VITALS: BP 121/94; PULSE 93; RESP 20; TEMP 36.1; O2SAT 100
== END 2024-12-13 18:13 | disposition home or self-care (01) ==
PROVIDERS: Physician Assistant Medical; Emergency Provider Emergency Medicine; PCP Internal Medicine
DX: K59.09 Other constipation (principal); R10.9 Unspecified abdominal pain
CPT/HCPCS: 36415; 74022; 80053; 81001; 81025; 83690; 83735; 85025; 99282; 99283

== ENCOUNTER → 2024-12-13 13:13 | Outpatient (BNV) | payer OTHER, SELFPAY | PROVIDERS: PCP Internal Medicine; Visit Provider Radiology Diagnostic Radiology | DX: Z03.89 Encounter for observation for other suspected diseases and conditions ruled out (principal) | CPT/HCPCS: 74022 ==

== ENCOUNTER 2025-01-20 20:05 | Emergency (ER) | payer OTHER, SELFPAY ==
--- NOTE | ~2025-01-20 | XR_ITS ---
CLINICAL HISTORY: LUQ abd pain constipation 1 view abdomen upright only Comparison: 12/13/2024 Findings: No significant bowel distention demonstrated. No significant increased stool noted. No free air. No abnormal calcification. No acute bony abnormalities. Impression: No significant abnormalities. This document has been electronically signed by: Pato Hernandez MD on 01/20/2025 21:10:23
[2025-01-20 20:17] VITALS: BP 141/97; PULSE 96; RESP 16; TEMP 36.2; O2SAT 100; BMI 38.2
--- NOTE | 2025-01-20 20:18 | ED.ABDPAIN ---
HPI - Abdominal Pain General Chief Complaint: General Medical Stated Complaint: weird sensation L side Time Seen by Provider: 01/21/25 00:22 History of Present Illness ED Provider: Alvarez FERRO narrative: The patient is a 29-year-old female who comes to the emergency room for evaluation of discomfort she experiences in her left upper abdomen. She says that the discomfort ?is not a pain. ? she says that she feels like she has an uneasy feeling of something moving inside her left upper abdomen. This is an intermittent sensation that can be sometimes associated with eating. She says that she had similar symptoms when she was seen here last month. She was here on December 13. At that time she was prescribed dicyclomine which she felt was helpful for these symptoms. Additionally she says that she had also purchased a bottle of magnesium citrate that she believes ?cleaned her out. ? She feels that she has chronic problems with constipation and that she has very irregular bowel movements. She has had no nausea or vomiting. She has not had any chest pain. Her discomfort is not pleuritic. There was no associated shortness of breath. She has had no pain or swelling in her legs. She is not on control pills. Related Data Home Medications ?Medication ?Instructions ?Recorded ?Confirmed lorazepam 0.5 mg tablet 0.5 mg PO BEDTIME PRN 05/19/20 06/12/24 escitalopram oxalate 10 mg tablet 10 mg PO DAILY 05/02/22 06/12/24 Previous Rx's ?Medication ?Instructions ?Recorded cholecalciferol (vitamin D3) 50 50 mcg PO DAILY 90 days #90 caps 11/05/23 mcg (2,000 unit) capsule aspirin 81 mg tablet,delayed 81 mg PO DAILY 90 days #90 tabs 12/25/23 release fluocinonide 0.05 % topical gel 1 appl topical BID 30 days #30 05/20/24 grams betamethasone dipropionate 0.05 % 1 appl topical DAILY 2 weeks #15 07/07/24 topical ointment grams valacyclovir 500 mg tablet 500 mg PO BID 3 days #6 tabs 11/06/24 (Valtrex) triamcinolone acetonide 0.1 % 1 appl topical DAILY 2 weeks #30 11/11/24 topical cream grams dicyclomine 10 mg capsule 10 mg PO QID colonic spasms #28 12/13/24 caplets dicyclomine 10 mg capsule 10 mg PO QID PRN abdominal pain 01/21/25 #28 caps famotidine 40 mg tablet 40 mg PO DAILY #30 tabs 01/21/25 polyethylene glycol 3350 17 17 g PO DAILY #238 grams 01/21/25 gram/dose oral powder Allergies Allergy/AdvReac Type Severity Reaction Status Date / Time No Known Allergies Allergy Verified 01/20/25 20:22 Review of Systems Review of Systems Yes all other systems are reviewed and are negative [facility] Past Medical History Medical History Mild major depression Depression Surgical History Lipoma Family History Family History Maternal Grandmother Diabetes HTN (hypertension) Family/Other Substance use disorder Mother No problems noted. Father No problems noted. Social History Social History Housing: Apartment Alcohol intake: current Alcohol intake frequency: holidays/special occasions only Alcohol type: hard liquor Patient Tobacco Use Status: Never used Tobacco e-Cigarette/Vaping Use: Never Used Second Hand Smoke Exposure: No Advance Directives: No Advance Directives Information Provided: No Do you have a plan to hurt others: No Plan service: No Current occupational status: employed Current occupation: [employer] Current occupational exposures/hazards: No Sexual orientation: Straight/Heterosexual Gender identity: Female Cognitive needs: No Hearing needs: No Vision needs: No Physical Exam ED Vital Signs: Vital Signs - 24 hr 01/20/25 20:17 01/20/25 23:58 01/21/25 00:00 Temperature 97.2 F 98.7 F 98.7 F Pulse Rate 96 97 97 Respiratory Rate 16 18 18 Blood Pressure 141/97 H 144/98 H 144/98 H Pulse Oximetry 100 100 100 Oxygen Delivery Method Room Air Room Air Room Air 01/21/25 00:49 01/21/25 00:50 Temperature 98.7 F 98.7 F Pulse Rate 81 81 Respiratory Rate 18 18 Blood Pressure 132/92 H 132/92 H Pulse Oximetry 100 100 Oxygen Delivery Method Room Air Room Air BMI result Body Mass Index 38.2 Const Other: The patient is awake, alert, pleasant, cooperative. She does not appear in acute distress. Orientation/consciousness: patient oriented x3 HENMT Other: The face is symmetrical. ?Mucous membranes moist. Eyes Other: Pupils are round equal, conjunctivae are clear, extraocular movements intact Neck Neck: Yes normal visual inspection and Yes full ROM Chest Other: No chest wall tenderness. Specifically in the left lower anterior ribcage near the left anterior costal margin there is no chest wall tenderness. Resp Effort & Inspection: normal respiratory effort Auscultation: clear to auscultation bilaterally Cardio Rate: regular rate Rhythm: regular rhythm Heart sounds: S1 normal heart sound present and S2 normal heart sound present GI Other: The patient has some mild tenderness in the left upper abdomen. The abdomen is very soft. There was no rebound or guarding. General: Yes no CVA tenderness Back/Spine/Pelvis Back: no CVA tenderness Skin Other: The skin is dry and unremarkable Neuro General: patient oriented x3, gait normal, tone normal, moves all extremities, no focal motor deficits and CN's II-XI intact bilaterally Extrem Other: There is no calf swelling or tenderness. No asymmetry. No peripheral edema. Course Course Course Narrative: This is a Rapid Medical Examination (RME) performed by Jewell Cheng PA-C in triage. Full HPI, ROS, assessment and treatment plan per primary provider in the Main ED. Hx: 29 yo F here for eval of left upper abd discomfort just below rib cage x1 month with associated spasms to the area evaluated for this 1 mo ago with unremarkable work up - diagnosed w/ constipation. her last normal BM was 1 wk ago, had a small bm this morning passing hard stool. Plan: labs, UA, KUB Medical Decision Making Medical Decision Making MDM Narrative: The patient is a 29-year-old female who presents with left upper quadrant abdominal discomfort. She specifically says the discomfort is not a pain but a sensation of something stuck or moving in her left upper abdomen. She has no respiratory component to this complaint. She does not feel short of breath. Her discomfort is not pleuritic in any way. She has no pleuritic discomfort at all. The patient is similar to discomfort she had when she presented to the emergency room a month ago. At that time she was thought to possibly be having some kind of bowel spasms and she was prescribed dicyclomine. She also says that she had purchased a bottle of magnesium citrate which helped her have significant bowel movements. She feels that both of these interventions were beneficial. She says that she subsequently tried to get a renewal of the dicyclomine prescription but she was unable to. Clinically the patient looks well and has a benign abdomen. I am not certain if her symptoms are related to some kind of bowel spasms, some degree of constipation, or possibly gastritis. The patient has a unremarkable labs including a CBC with a normal white count and differential. I do not see a role for imaging of her abdomen. The patient will be given a bottle of magnesium citrate that she may drink at home. She will also be given prescriptions for dicyclomine to use as needed, famotidine to take on a daily basis, and also a prescription for polyethylene glycol (MiraLax) which she should probably take regularly for a while since she seems to describe having chronic problems with constipation. She has a Gastroenterology appointment in April. In the meantime she can follow up with her PCP. Lab Data 01/20/25 20:50 01/20/25 20:50 Labs: Lab Results 01/20/25 01/20/25 Range/Units 20:50 20:55 WBC 7.9 (4.8-10.8) X10*3/uL RBC 4.34 (4.20-5.50) X10*6/uL Hgb 13.0 (12.0-16.0) g/dl Hct 37.4 (37.0-47.0) % MCV 86.2 (80.0-98.0) fL MCH 30.0 (27.0-33.0) pg MCHC 34.8 (31.0-35.0) g/dl RDW 12.0 (11.0-16.0) % Plt Count 337 (160-400) X10*3/uL MPV 8.9 L (9.4-12.3) fL Immature Gran % (Auto) 0.1 (0.0-0.4) % Neut % (Auto) 57.8 (45-73) % Lymph % (Auto) 33.8 (20-40) % [place] % (Auto) 7.3 (2-11) % Eos % (Auto) 0.5 (0-4) % Baso % (Auto) 0.5 (0-2) % Lymph # (Auto) 2.7 (1.2-4.9) X10*3/uL [place] # (Auto) 0.6 (0.1-1.2) X10*3/uL Eos # (Auto) 0.0 (0.0-0.4) X10*3/uL Baso # (Auto) 0.0 (0.0-0.2) X10*3/uL Abs Immat Gran (auto) 0.01 (0.00-0.03) X10*3/uL Absolute Neuts (auto) 4.6 (2.0-8.3) x10*3/uL Absolute Nucleated RBC 0.000 (0.0-0.012) X10*3/uL Nucleated RBC % (auto) 0.0 (0.0-0.2) /100WBC Sodium 143 (135-145) mmol/L Potassium 4.0 (3.3-5.1) mmol/L Chloride 107 (96-108) mmol/L Carbon Dioxide 26 (22-29) mmol/L Anion Gap 14 (12-20) BUN 13 (9-16) mg/dL Creatinine 0.93 (0.5-1.4) mg/dL Estim Creat Clear Calc 84.9 Estimated GFR > 60 Random Glucose 95 (60-115) mg/dL Calcium 9.6 D (8.4-10.2) mg/dL Magnesium 1.9 (1.6-2.6) mg/dL Total Bilirubin 0.3 (0.0-1.0) mg/dL AST 19 (5-31) U/L ALT 17 (0-31) U/L Alkaline Phosphatase 61 (39-117) U/L Total Protein 7.8 (6.5-8.0) g/dL Albumin 4.8 (3.5-5.0) g/dL Lipase 23 (8-78) U/L Beta HCG, Quant < 2 mIU/mL Urine Color Yellow Urine Appearance Clear Urine pH 5.5 (5.0-9.0) Ur Specific [place] >= 1.030 H (1.005-1.025) Urine Protein Negative (Neg-Trace) mg/dL Urine Glucose (UA) Negative (Negative) mg/dL Urine Ketones Trace (Negative) mg/dL Urine Blood Small (1+) H (Negative) Urine Nitrite Negative (Negative) Ur Leukocyte Esterase Negative (Negative) Urine RBC 3-5 H (0-2) /HPF Urine WBC 0-5 (0-5) /HPF Ur Squamous Epith Cells 6-10 (0-2) /HPF Urine Bacteria 2+ (None Seen) Hyaline Casts 0-2 (0-2) /LPF Medications Administered Discontinued Medications Generic Name Dose Route Start Last Admin Trade Name Vargas PRN Reason Stop Dose Admin Magnesium Citrate 300 ml 01/21/25 00:36 01/21/25 00:48 Magnesium Citrate 300 Ml Solution PO 01/21/25 00:37 300 ml ONCE ONE Administration Discharge Plan Discharge Clinical Impression: Left upper quadrant abdominal pain Patient Disposition: Home, Self-Care Additional Instructions: Your testing in the emergency room today seems reassuring. There are a few diagnostic possibilities. Part of your symptoms may be caused by constipation. You has been given a bottle of magnesium citrate which may help ?clean you out. ? You may drink this bottle at home tomorrow. Additionally, to address any long-term constipation, it might be reasonable for you to take MiraLax (polyethylene glycol) daily for a few weeks. I have sent a prescription for this medication to your pharmacy. Additionally you may be having episodes of bowel spasms. I have sent another prescription for the medication dicyclomine that you may use on an as-needed basis. Another consideration is the possibility you may have some degree of gastritis. Gastritis is an irritation of the lining of the stomach caused by stomach acid. I have sent a prescription for the medication famotidine to your pharmacy. This medication reduce his stomach acid production. You may take this medication once a day for a month to see if it helps with the your symptoms. Please follow up with your regular doctor to discuss these symptoms further. Also keep your appointment later this year with a Gastroenterology. Return to the emergency room if significantly worse. Prescriptions: New dicyclomine 10 mg capsule 10 mg PO QID PRN (Reason: abdominal pain) Qty: 28 0RF famotidine 40 mg tablet 40 mg PO DAILY Qty: 30 0RF polyethylene glycol 3350 17 gram/dose powder 17 g PO DAILY Qty: 238 0RF No Action cholecalciferol (vitamin D3) 50 mcg (2,000 unit) capsule 50 mcg PO DAILY 90 Days Qty: 90 1RF aspirin 81 mg tablet,delayed release (DR/EC) 81 mg PO DAILY 90 Days Qty: 90 3RF fluocinonide 0.05 % gel 1 appl topical BID 30 Days Qty: 30 2RF betamethasone dipropionate 0.05 % ointment 1 appl topical DAILY 14 Days Qty: 15 1RF valacyclovir [Valtrex] 500 mg tablet 500 mg PO BID 3 Days Qty: 6 6RF Rx Instructions: Take 1 tablet twice a day for 3 days as needed for outbreak dicyclomine 10 mg capsule 10 mg PO QID Qty: 28 0RF lorazepam 0.5 mg tablet 0.5 mg PO BEDTIME PRN escitalopram oxalate 10 mg tablet 10 mg PO DAILY triamcinolone acetonide 0.1 % cream 1 appl topical DAILY 14 Days Qty: 30 2RF Referrals: Lore Glynn MD [Primary Care Provider, Internal Medicine] Interventions: ED Discharge Assessment Last Done: 01/21/25 00:50 Discharge Date/Time: 01/21/25 01:11 Print Language: Upper Sorbian
[2025-01-20 20:54] LABS: MANUAL DIFF FLAG NO
[2025-01-20 20:57] LABS: Hematocrit 37.4 % (37.0-47.0); Hemoglobin 13.0 g/dl (12.0-16.0); Imm Gran Abs Auto 0.01 X10*3/uL (0.00-0.03); Imm Gran Pct Auto 0.1 % (0.0-0.4); Lymphocytes Absolute Auto 2.7 X10*3/uL (1.2-4.9); Mean Corpuscular HGB Conc 34.8 g/dl (31.0-35.0); Mean Corpuscular Hemoglobin 30.0 pg (27.0-33.0); Mean Corpuscular Volume 86.2 fL (80.0-98.0); NRBC Abs Auto 0.000 X10*3/uL (0.0-0.012); NRBC Pct Auto 0.0 /100WBC (0.0-0.2); Platelet Count 337 X10*3/uL (160-400); Red Blood Count 4.34 X10*6/uL (4.20-5.50); White Blood Count 7.9 X10*3/uL (4.8-10.8)
[2025-01-20 21:04] LABS: Appearance Urine Clear; Glucose Urine UA Negative (Negative); PH 5.5 (5.0-9.0); Specific Gravity - Urine >= 1.030 (1.005-1.025); UMIC TRIGGER UACC YES
[2025-01-20 21:16] LABS: Alanine Aminotransferase 17 U/L (0-31); Albumin Level 4.8 g/dL (3.5-5.0); Alkaline Phosphatase 61 U/L (39-117); Anion Gap 14 (12-20); Aspartate Amino Transferase 19 U/L (5-31); Blood Urea Nitrogen 13 mg/dL (9-16); Calcium 9.6 mg/dL (8.4-10.2); Carbon Dioxide 26 mmol/L (22-29); Chloride 107 mmol/L (96-108); Creatinine Clr Calc Pharmacy 84.9; Estimated Glomerular Filt Rate > 60; Lipase 23 U/L (8-78); Magnesium 1.9 mg/dL (1.6-2.6); Potassium 4.0 mmol/L (3.3-5.1); Sodium 143 mmol/L (135-145); Total Protein 7.8 g/dL (6.5-8.0)
[2025-01-20 23:58] VITALS: BP 144/98; PULSE 97; RESP 18; TEMP 37.1; O2SAT 100
[2025-01-21] VITALS: BP 144/98; PULSE 97; RESP 18; TEMP 37.1; O2SAT 100
[2025-01-21 00:49] VITALS: BP 132/92; PULSE 81; RESP 18; TEMP 37.1; O2SAT 100
[2025-01-21 00:50] VITALS: BP 132/92; PULSE 81; RESP 18; TEMP 37.1; O2SAT 100
== END 2025-01-21 01:11 | disposition home or self-care (01) ==
PROVIDERS: Physician Assistant Medical; Emergency Provider Emergency Medicine; PCP Internal Medicine
DX: R10.12 Left upper quadrant pain (principal)
CPT/HCPCS: 36415; 74018; 80053; 81001; 81003; 83690; 83735; 84702; 85025; 99283; 99284

== ENCOUNTER → 2025-01-20 20:21 | Outpatient (BNV) | payer OTHER, SELFPAY | PROVIDERS: PCP Internal Medicine; Visit Provider Radiology Diagnostic Radiology | DX: R10.12 Left upper quadrant pain (principal) | CPT/HCPCS: 74018 ==

== ENCOUNTER 2025-01-30 16:26 | Outpatient (AMB) | payer OTHER, SELFPAY ==
--- OUTSIDE RECORDS SUMMARY | 2025-01-30 16:28 | XMS_ITS | Clinical Summary ---
Author Organization [facility] Address [address] [place] [address] Phone Care Team Providers Care Tour Manager Name Role Phone Unavailable Primary Care Provider [...] 91 11/18/2014 12:00 AM EDT Temperature 36.8 C (98.2 F) 11/18/2014 12:00 AM EDT Respiratory Rate - - Oxygen Saturation - [...] 08/27/2022 08/27/2012, 03/06/2007, 09/08/1999, Additional history exists COVID-19 Vaccine ( season) 2024 Influenza Vaccines (#1) 2025 02/20/20 13, 01/23/2012, 05/14/2009, Additional history exists Hepatitis B Vaccines Completed 1995, 1995, 1995 [...] PM EDT) URINE CHLAMYDIA AMP PROBE NEGATIVE [facility] Comment: No Chlamydia Trachomatis RNA detected in this patient's sample (REFERENCE RANGE/NORMAL VALUE: NOT DETECTED) URINE GC AMP PROBE NEGATIVE [facility] Comment: No Neisseria Gonorrhoeae RNA detected in this patient's sample (REFERENCE RANGE/NORMAL VALUE: NOT DETECTED) NOTE: This test uses web designer developer-mediated amplification method to detect rRNA from C.Trachomatis [...] without risk of sexual abuse. Consult the [facility] if needed. Contact phone number . Therapeutic failure or success cannot be determined with the Aptima Combo2 assay since nucleic acid may persist following appropriate antimicrobial therapy. The Centers for Disease Control and Prevention (CDC) recommends confirmatory retesting using culture or a different nucleic acid amplification test when positive results occur, if indicated. Testing performed or reported by [facility], a Service of [facility], [address] [place] [address] Eloy Baires MD, PhD, Bookkeeping Assistant 11/19/2014 3:11 PM EDT Narrative [facility] - 11/19/2014 3:11 PM EDT URINE CHLAMYDIA GC AMP PROBE us Ailyn Bosch DO LAB MICROBIOLOGY - GENERAL ORDER SUZANNA Final Result [facility] [address] [place] [address], [place] from Last 3 Months or Most Recently Relevant to Health Maintenance
--- OUTSIDE RECORDS SUMMARY | 2025-01-30 16:28 | XMS_ITS | Encounter Summary ---
Author Organization [facility] Address [address] [place] [address] Phone Care Team Providers Care Titrator Name Role Phone Ailyn Bosch DO Primary Care Provider [phone] Encounter Details Date Type Department Care Team (Late st Contact Info) Description 11/24/2014 Documentation [facility] Family Medicine [address] [place] [address] Family Medicine, Physician [address] [place], [place] [id number] Social History Tobacco Use Types Packs/Day Years [...] on filedocumented in this encounter Care Teams Titrator Relationship Specialty Start Date End Date Ailyn Bosch DO [address] [facility] [place] [address] PCP - General 01/12/17 11/08/22 documented as of this encounter
--- OUTSIDE RECORDS SUMMARY | 2025-01-30 16:28 | XMS_ITS | Encounter Summary ---
Author Organization [facility] Address [address] [place] [address] Phone Care Team Providers Care Wood Boat Builder Supervisor Name Role Phone Ailyn Bosch DO Primary Care Provider [phone] Encounter Details Date Type Department Care Team (Late st Contact Info) Description 09/14/2010 Documentation [facility] Family Medicine [address] [place] [address] Family Medicine, Physician [address] [place] [address] Social History Tobacco Use Types [...] on filedocumented in this encounter Care Teams Wood Boat Builder Supervisor Relationship Specialty Start Date End Date Ailyn Bosch DO [address] [facility] [place] [address] PCP - General 01/12/17 11/08/22 documented as of this encounter
--- OUTSIDE RECORDS SUMMARY | 2025-01-30 16:28 | XMS_ITS | Encounter Summary ---
Author Organization [facility] Address [address] [place] [address] Phone Care Team Providers Care Sr. Payroll Manager Name Role Phone Ailyn Bosch DO Primary Care Provider [phone] Encounter Details Date Type Department Care Team (Late st Contact Info) Description 06/10/2010 Documentation [place] Family Medicine [address] [place] [address] Family Medicine, Physician [address] [place] [address] Social History Tobacco Use Types [...] on filedocumented in this encounter Care Teams Sr. Payroll Manager Relationship Specialty Start Date End Date Ailyn Bosch DO [address] [facility] [place] [address] PCP - General 01/12/17 11/08/22 documented as of this encounter
--- OUTSIDE RECORDS SUMMARY | 2025-01-30 16:28 | XMS_ITS | Encounter Summary ---
Author Organization [facility] Address [address] [place] [address] Phone Care Team Providers Care Loss Prevention Supervisor Name Role Phone Ailyn Bosch DO Primary Care Provider [phone] Encounter Details Date Type Department Care Team (Late st Contact Info) Description 01/18/2017 Conversion Encounter [facility] [address] [place] [address] Social History Tobacco Use Types Packs/Day Years [...] on filedocumented in this encounter Care Teams Loss Prevention Supervisor Relationship Specialty Start Date End Date Ailyn Bosch DO [address] [place] [address] PCP - General 01/12/17 11/08/22 documented as of this encounter
--- OUTSIDE RECORDS SUMMARY | 2025-01-30 16:28 | XMS_ITS | Encounter Summary ---
Author Organization [facility] Address [address] [place] [address] Phone Care Team Providers Care Cork Tipper Name Role Phone Ailyn Bosch DO Primary Care Provider [phone] Encounter Details Date Type Department Care Team (Late st Contact Info) Description 06/14/2010 Documentation [facility] Family Medicine [address] [place] [address] Family Medicine, Physician [address] [place] [address] Social History Tobacco Use Types [...] on filedocumented in this encounter Care Teams Cork Tipper Relationship Specialty Start Date End Date Ailyn Bosch DO [address] [facility] [place] [address] PCP - General 01/12/17 11/08/22 documented as of this encounter
[2025-01-30 16:34] VITALS: BP 120/90; PULSE 98; RESP 18; TEMP 36.3; O2SAT 98; BMI 38.4
--- NOTE | 2025-01-30 16:34 | A.OFFPC_ITS ---
Vital Signs 01/30/25 16:34 Height 4 ft 11 in Weight 190 lb 4 oz BMI 38.4 BP 120/90 H Blood Pressure Location Lt brachial Position Sitting Respiration 18 Pulse 98 Pulse Source Pulse Oximeter Temp 97.3 F Temp Source Temporal Artery Scan Pulse Oximetry (%) 98 Oxygen Delivery Method Room Air Intake Visit Reasons: [facility] [place] 12/13 Muscle spasms Day Haul Youth Supervisor Required: No Accompanied by: Self / Same As Patient Allergies No Known Allergies Allergy (Verified 01/30/25 16:34) Tobacco use date assessed: 01/30/25 Dental Screening Dental Screen Date: 01/30/25 Did you have a dental visit in the last 12 months?: Yes Did you have a dental problem in the last 6 months where you did not have access to dental care?: No Was dental information given to patient?: Patient has dentist HPI HPI Comments History of Present Illness Details 29 y/o Female patient who presents to [facility] for EDF. Pt was admitted at [facility] [place] on 01/20 for an evaluation and treatment of Left lower abdominal pain. She feels like she has an uneasy feeling of something moving inside her left upper abdomen. This is an intermittent sensation that can be sometimes associated with eating. Pt also associates the pain with Constipation and Bloating. Pt has been scheduled with GI and Urology, PCP also ordered Abdominal U/S. [facility] Medical History (Updated 01/30/25 @ 17:02 by Anna Marie Liao NP) Generalized abdominal pain Mild major depression Depression Surgical History Lipoma Family History Maternal Grandmother Diabetes HTN (hypertension) Family/Other Substance use disorder Mother No problems noted. Father No problems noted. Social History Housing: Apartment Alcohol intake: current Alcohol intake frequency: holidays/special occasions only Alcohol type: hard liquor Patient Tobacco Use Status: Never used Tobacco e-Cigarette/Vaping Use: Never Used Second Hand Smoke Exposure: No service: No Current occupational status: employed Current occupation: [employer] Current occupational exposures/hazards: No Sexual orientation: Straight/Heterosexual Gender identity: Female Cognitive needs: No Hearing needs: No Vision needs: No Female Reproductive History Menstrual Age of Menarche: 12 Questionnaire PHQ-9 Over the last 2 weeks, how often have you been bothered by any of the following problems? 1. Little interest or pleasure in doing things: several days 2. Feeling down, depressed, or hopeless: nearly every day 3. Trouble falling or staying asleep, or sleeping too much: nearly every day 4. Feeling tired or having little energy: more than half the days 5. Poor appetite or overeating: nearly every day 6. Feeling bad about yourself - or that you are a failure or have let yourself or your family down: more than half the days 7. Trouble concentrating on things, such as reading the newspaper or watching television: several days 8. Moving or speaking so slowly that other people could have noticed. Or the opposite - being so fidgety or restless that you have been moving around a lot more than usual: not at all 9. Thoughts that you would be better off or of hurting yourself in some way: not at all Total score: 15 Depression Screening Interpretation: Positive Depression Screening Follow-up: Existing condition, Community Mental Health Worker F/U and Follow-up Visit Requested Depression Screening Done: Yes 68881 - PHQ-9 Billing: Yes Source: Developed by Drs. Piero Ren, Mariely Meyer, Cristiano Manzano and colleagues, with an educational kenji from [employer]. Thrive Questionnaire Date Thrive assessed: 01/30/25 I am a: Patient What is your living situation today?: I have a steady place to live Within the past 12 months, did the food you bought not last and you didn't have the money to get more?: Never true Within the past 12 months, did you worry whether your food would run out before you got money to buy more?: Never true Do you have trouble paying for medicines?: No Do you have trouble getting transportation to medical appointments?: No Do you have trouble paying your heating and electricity bill?: No Do you have trouble taking care of your child, family member or friend?: No Do you have trouble with day-to-day activities such as bathing, preparing meals, shopping, managing finances, etc.?: No Are you currently unemployed and looking for a job?: No Are you interested in more education?: No Please select the resources that you would like help with: None Currently or been in a relationship where the following occur: No concerns reported THRIVE Score: 0 AUDIT C Alcohol Use Questionnaire (AUDIT-C) 1. How often do you have a drink containing alcohol?: Monthly or less 2. How many drinks containing alcohol do you have on a typical day when you are drinking?: 1 or 2 3. How often do you have six or more drinks on one occasion?: Never Total Score: 1 Score Reviewed/Action Taken: No YAJAIRA-7 AMB Questionnaire YAJAIRA-7 Date YAJAIRA - 7 assessed: 01/30/25 Feeling nervous, anxious, or on edge: 1 = Several days Not being able to stop or control worryin = More than half the days Worrying too much about different things: 1 = Several days Trouble relaxin = Several days Being so restless that it is hard to sit still: 1 = Several days Becoming easily annoyed or irritable: 2 = More than half the days Feeling afraid as if something awful might happen: 2 = More than half the days Total YAJAIRA-7 score (0-4 normal; 5-9 mild; 10-14 moderate; 15-21 severe): 10 Source: Developed by Drs. Piero Ren, Mariely Meyer, Cristiano Manzano and colleagues, with an educational kenji from [employer]. YAJAIRA-7 Assessment Billing YAJAIRA-7 Assessment Tool: YAJAIRA-7 Assessment 48526 Review of Systems Const All systems reviewed & are unremarkable except as noted in HPI and below Physical exam (Primary Care) Vital Signs: Last Vital Signs Temp 97.3 F 01/30/25 16:34 Pulse 98 01/30/25 16:34 Resp 18 01/30/25 16:34 BP 120/90 H 01/30/25 16:34 Pulse Ox 98 01/30/25 16:34 Oxygen Delivery Method Room Air 01/30/25 16:34 BMI result Body Mass Index 38.4 Tobacco/Smoking Status: Tobacco use Status Tobacco use date assessed 01/30/25 01/30/25 16:41 Patient Tobacco Use Status Never used Tobacco 01/30/25 16:41 e-Cigarette/Vaping Use Never Used 01/30/25 16:41 PHQ-9: PHQ-9 Score PHQ-9: Total score 15 01/30/25 16:41 Depression Screening Interpretation: Positive Depression Screening Follow-up: Existing condition, Community Mental Health Worker F/U and Follow-up Visit Requested Thrive Assessment: Date of Thrive Assessment Date Thrive assessed 01/30/25 01/30/25 16:41 Currently or been in a relationship where the following occur: No concerns reported Const General: no acute distress Nutritional Appearance: obese Orientation/consciousness: patient oriented x3 GI Inspection: Yes Abdominal panniculus present and Yes obesity Palpation (GI): Soft to palpation, not firm, Tenderness to palpation present (GI) in the LLQ and in the RUQ and no guarding Auscultation: normal bowel sounds Neuro General: patient oriented x3 Coding Level of Care Code Est Pt Level 4 (73988) Diagnoses Generalized abdominal pain R10.84 Additional Codes YAJAIRA-7 Assessment Billing - YAJAIRA-7 Assessment Tool: YAJAIRA-7 Assessment 17268 ([id number]) PHQ-9 - 06593 - PHQ-9 Billing: Yes ([id number]) Time Spent (min) 20 Assessment & Plan Assessment & Plan (1) Generalized abdominal pain: Code(s): R10.84 - Generalized abdominal pain Category: Medical Plan: PCP ordered Abdominal U/S. She is also scheduled with GI and Urology.
== END 2025-01-30 17:01 | disposition home or self-care (01) ==
LOC: HO.HMCH 16:27
PROVIDERS: PCP Internal Medicine; Visit Provider Nurse Practitioner Family
DX: R10.84 Generalized abdominal pain (principal)

== ENCOUNTER → 2025-01-30 16:26 | Outpatient (BNVA) | payer OTHER, SELFPAY | PROVIDERS: PCP Internal Medicine; Visit Provider Nurse Practitioner Family | DX: R10.84 Generalized abdominal pain (principal) | CPT/HCPCS: 96127; 99212 ==

== ENCOUNTER 2025-03-31 10:00 | Outpatient (REF) | payer OTHER, SELFPAY ==
--- NOTE | ~2025-03-31 | US_ITS ---
CLINICAL HISTORY: R10.9 - Unspecified abdominal pain US abdomen complete Comparison: None provided Findings: The visualized pancreas head is normal. Remaining pancreas is obscured by bowel gas. The visualized aorta and inferior vena cava are normal caliber. The liver is mildly small, right lobe length is 12.1 cm. Normal in echogenicity, no discrete lesion is visualized in the imaged liver. No intrahepatic bile duct dilatation. The common duct is dilated up to 7 mm in diameter proximally, distal CBD is obscured by bowel gas. The gallbladder is normal. Negative sonographic Cleaning sign. The main portal vein is patent with antegrade flow. The right kidney is normal, 9.9 cm in length. The left kidney is normal, 10.5 cm in length. The spleen is normal, 9.0 cm in length. No free fluid in the abdomen. Impression: 1. Dilated proximal common duct, uncertain etiology and distal CBD is not seen, recommend correlation with LFT, MRCP can be helpful for further evaluation. 2. Otherwise unremarkable. This document has been electronically signed by: Alba Yap MD on 04/01/2025 15:23:03
--- OUTSIDE RECORDS SUMMARY | 2025-03-31 11:53 | XMS_ITS | Encounter Summary ---
Author Organization [facility] Address [address] [place] [address] Phone Care Team Providers Care Tip Finisher Name Role Phone Ailyn Bosch DO Primary Care Provider Encounter Details Date Type Department Care Team (Late st Contact Info) Description 11/24/2014 Documentation [facility] Family Medicine [address] [place] [address] Family Medicine, Physician [address] [place], [place] [id number] Social History Tobacco Use Types Packs/Day Years [...] on filedocumented in this encounter Care Teams Tip Finisher Relationship Specialty Start Date End Date Ailyn Bosch DO [address] [facility] [place] [address] PCP - General 01/12/17 11/08/22 documented as of this encounter
--- OUTSIDE RECORDS SUMMARY | 2025-03-31 11:53 | XMS_ITS | Encounter Summary ---
Author Organization [facility] Address [address] [place] [address] Phone Care Team Providers Care Media Coordinator Name Role Phone Ailyn Bosch DO Primary Care Provider [phone] Encounter Details Date Type Department Care Team (Late st Contact Info) Description 01/18/2017 Conversion Encounter [facility] [place] [address] [place] [address] Social History Tobacco Use Types Packs/Day Years [...] on filedocumented in this encounter Care Teams Media Coordinator Relationship Specialty Start Date End Date Ailyn Bosch DO [address] [place] [address] PCP - General 01/12/17 11/08/22 documented as of this encounter
--- OUTSIDE RECORDS SUMMARY | 2025-03-31 11:53 | XMS_ITS | Encounter Summary ---
Author Organization [facility] Address [address] [place] [address] Phone Care Team Providers Care Data Quality Consultant Name Role Phone Ailyn Bosch DO Primary Care Provider [phone] Encounter Details Date Type Department Care Team (Late st Contact Info) Description 06/14/2010 Documentation [facility] [place] Family Medicine [address] [place] [address] Family Medicine, Physician [address] [place] [address] Social History Tobacco Use Types [...] on filedocumented in this encounter Care Teams Data Quality Consultant Relationship Specialty Start Date End Date Ailyn Bosch DO [address] [facility] [place] [address] PCP - General 01/12/17 11/08/22 documented as of this encounter
--- OUTSIDE RECORDS SUMMARY | 2025-03-31 11:53 | XMS_ITS | Encounter Summary ---
Author Organization [facility] Address [address] [place] [address] Phone Care Team Providers Care Export Traffic Department Manager Name Role Phone Ailyn Bosch DO Primary Care Provider [phone] Encounter Details Date Type Department Care Team (Late st Contact Info) Description 09/14/2010 Documentation [facility] [place] [address] [place] [address] Family Medicine, Physician [address] [place] [address] Social History Tobacco Use Types [...] on filedocumented in this encounter Care Teams Export Traffic Department Manager Relationship Specialty Start Date End Date Ailyn Bosch DO [address] [facility] [place] [address] PCP - General 01/12/17 11/08/22 documented as of this encounter
--- OUTSIDE RECORDS SUMMARY | 2025-03-31 11:53 | XMS_ITS | Clinical Summary ---
Author Organization [facility] Address [address] [place] [address] Phone Care Team Providers Care Grout Machine Operator Name Role Phone Unavailable Primary Care Provider [...] 09/08/1999, Additional history exists Influenza Vaccines (#1) 2025 02/20/20 13, 01/23/2012, 05/14/2009, Additional history exists COVID-19 Vaccine ( season) 2025 Hepatitis B Vaccines Completed 1995, 1995, 1995 [...] complete this topic Procedures * Due to [place] state law, this organization might not be sharing sensitive test results. Procedure Name Priority Date/Time Associated Diagnosis Comments CHLAMYDIA AND GONORRHEA, AMPLIFIED Routine 11/19/2014 3:11 PM EDT from Last 3 Months or Most Recently Relevant to Health Maintenance Results * Due to [place] state law, this organization might not be sharing sensitive test results. * Chlamydia and Gonorrhoea, Amplified (11/19/2014 3:11 PM EDT) URINE CHLAMYDIA AMP PROBE NEGATIVE [facility] Comment: No Chlamydia Trachomatis RNA detected in this patient's sample (REFERENCE RANGE/NORMAL VALUE: NOT DETECTED) URINE GC AMP PROBE NEGATIVE [facility] Comment: No Neisseria Gonorrhoeae RNA detected in this patient's sample (REFERENCE RANGE/NORMAL VALUE: NOT DETECTED) NOTE: This test uses spray gun sizer-mediated amplification method to detect rRNA from C.Trachomatis [...] without risk of sexual abuse. Consult the [facility] if needed. Contact phone number . Therapeutic failure or success cannot be determined with the Aptima Combo2 assay since nucleic acid may persist following appropriate antimicrobial therapy. The Centers for Disease Control and Prevention (CDC) recommends confirmatory retesting using culture or a different nucleic acid amplification test when positive results occur, if indicated. Testing performed or reported by [facility], a Service of [facility], [address] [place] [address] Eloy Baires MD, PhD, Senior Administrative Assistant 11/19/2014 3:11 PM EDT Narrative [facility] - 11/19/2014 3:11 PM EDT URINE CHLAMYDIA GC AMP PROBE us Ailyn Bosch DO LAB MICROBIOLOGY - GENERAL ORDER SUZANNA Final Result [facility] [address] [place] [address], [place] from Last 3 Months or Most Recently Relevant to Health Maintenance
--- OUTSIDE RECORDS SUMMARY | 2025-03-31 11:53 | XMS_ITS | Encounter Summary ---
Author Organization [facility] Address [address] [place] [address] Phone Care Team Providers Care Decorating Equipment Setter Name Role Phone Ailyn Bosch DO Primary Care Provider [phone] Encounter Details Date Type Department Care Team (Late st Contact Info) Description 06/10/2010 Documentation [facility] [place] Family Medicine [address] [place] [address] Family Medicine, Physician [address] [place] [address] Social History Tobacco Use Types [...] on filedocumented in this encounter Care Teams Decorating Equipment Setter Relationship Specialty Start Date End Date Ailyn Bosch DO [address] [facility] [place] [address] PCP - General 01/12/17 11/08/22 documented as of this encounter
== END 2025-03-31 10:01 | disposition home or self-care (01) ==
LOC: HO.US 10:00
PROVIDERS: PCP Internal Medicine; Visit Provider Internal Medicine
DX: R10.9 Unspecified abdominal pain (principal)
CPT/HCPCS: 76700

== ENCOUNTER → 2025-03-31 10:02 | Outpatient (BNV) | payer OTHER, SELFPAY | PROVIDERS: PCP Internal Medicine; Visit Provider Radiology Diagnostic Radiology | DX: K83.8 Other specified diseases of biliary tract (principal) | CPT/HCPCS: 76700 ==

== ENCOUNTER 2025-04-06 09:53 | Outpatient (AMB) | payer OTHER, SELFPAY ==
--- NOTE | 2025-04-06 10:41 | MHC.OFFVIS ---
Vital Signs 04/06/25 10:44 Height 4 ft 11 in Weight 187 lb 6.287 oz BMI 37.8 BP 134/101 H Blood Pressure Location Lt brachial Position Sitting Pulse 118 H Intake Visit Reasons: Abdominal Pains Intake Note: Rossi presents in the office as a new patient for abdominal pains. CC: She states she has a discomfort on the left side. She had an ultrasound done recently and was was her liver was a 7mm tube. She sates when she feels a movement like a gas feeling - she adds pressure and she has to pass gas. Gamma Facilities Operator Required: No Allergies No Known Allergies Allergy (Verified 04/06/25 10:44) HPI Comments Details: The patient is a 30-year-old female presenting with abnormal ultrasound findings and left-sided abdominal discomfort. She notes a non-painful, peculiar movement feeling localized to the left side since December almost like a baby's kick. This is not associated with food intake or bowel movement. US abd ordered for evaluation shows CBD dilation but images not adequate for complete evaluation of CBD. She denies gastrointestinal distress associated with the left-side sensation. --- Pt was informed and consented to the use of ambient scribe for this encounter. --- COUNTS INCLUDE 234 BEDS AT THE [facility] Medical History Generalized abdominal pain Mild major depression Depression Surgical History Lipoma Family History Maternal Grandmother Diabetes HTN (hypertension) Family/Other Substance use disorder Mother No problems noted. Father No problems noted. Social History Housing: Apartment Alcohol intake: current Alcohol intake frequency: holidays/special occasions only Alcohol type: hard liquor Patient Tobacco Use Status: Never used Tobacco e-Cigarette/Vaping Use: Never Used Second Hand Smoke Exposure: No service: No Current occupational status: employed Current occupation: [employer] Current occupational exposures/hazards: No Sexual orientation: Straight/Heterosexual Gender identity: Female Cognitive needs: No Hearing needs: No Vision needs: No Female Reproductive History Menstrual Age of Menarche: 12 Review of Systems Const All systems reviewed & are unremarkable except as noted in HPI and below Physical Exam Exam Exam: No apparent distress Nonicteric Abdomen soft, nondistended, no localized tenderness on palpation Alert and oriented x3, normal gait Vital Signs: Last Vital Signs Pulse 118 H 04/06/25 10:44 BP 134/101 H 04/06/25 10:44 BMI result Body Mass Index 37.8 Assessment & Plan Assessment & Plan (1) Common bile duct dilatation: Code(s): K83.8 - Other specified diseases of biliary tract Category: Medical (2) Left sided abdominal pain: Code(s): R10.9 - Unspecified abdominal pain Category: Medical Plan 1. Common Bile Duct Dilatation reviewed with the patient that would favor repeat US to obtain good quality images before proceeding with MRCP. Plan: - Repeat ultrasound. - liver function tests. - MRCP if either or both abnormal 2. Left-Sided Abdominal Discomfort Unlikely to be luminal based on description and exam however will check UGIS to r/o PUD, gastritis etc. Plan: - Upper GI series. - EGD contingent on above Pt requests to be updated over the portal if normal results and no actionable finding Orders: Orders US abdomen limited Today K83.8 - Other specified diseases of biliary tract Liver Panel Today K83.8 - Other specified diseases of biliary tract FL barium swallow Today R10.9 - Unspecified abdominal pain Coding Level of Care Code New Pt Level 4 (25615) Diagnoses Common bile duct dilatation K83.8 Left sided abdominal pain R10.9
[2025-04-06 10:44] VITALS: BP 134/101; PULSE 118; BMI 37.8
--- OUTSIDE RECORDS SUMMARY | 2025-04-06 11:33 | XMS_ITS | Encounter Summary ---
Author Organization [facility] Address [address] [place] [address] Phone Care Team Providers Care Catalyst Recovery Operator Name Role Phone Ailyn Bosch DO Primary Care Provider [phone] Encounter Details Date Type Department Care Team (Late st Contact Info) Description 01/18/2017 Conversion Encounter [facility] [place] [address] [place] [address] Social History Tobacco Use Types Packs/Day Years [...] on filedocumented in this encounter Care Teams Catalyst Recovery Operator Relationship Specialty Start Date End Date Ailyn Bosch DO [address] [place] [address] PCP - General 01/12/17 11/08/22 documented as of this encounter
--- OUTSIDE RECORDS SUMMARY | 2025-04-06 11:33 | XMS_ITS | Encounter Summary ---
Author Organization [facility] Address [address] [place] [address] Phone Care Team Providers Care Production Hardener Name Role Phone Ailyn Bosch DO Primary Care Provider [phone] Encounter Details Date Type Department Care Team (Late st Contact Info) Description 11/24/2014 Documentation [facility] [place] Family Medicine [address] [place] [address] Family Medicine, Physician [address] [place], [place] [phone] Social History Tobacco Use Types Packs/Day Years [...] on filedocumented in this encounter Care Teams Production Hardener Relationship Specialty Start Date End Date Ailyn Bosch DO [address] [facility] [place] [address] PCP - General 01/12/17 11/08/22 documented as of this encounter
--- OUTSIDE RECORDS SUMMARY | 2025-04-06 11:33 | XMS_ITS | Clinical Summary ---
Author Organization [facility] Address [address] [place] [address] Phone Care Team Providers Care Loan Review Manager Name Role Phone Unavailable Primary Care [...] complete this topic Procedures * Due to [place] state law, this organization might not be sharing sensitive test results. Procedure Name Priority Date/Time Associated Diagnosis Comments CHLAMYDIA AND GONORRHEA, AMPLIFIED Routine 11/19/2014 3:11 PM EDT from Last 3 Months or Most Recently Relevant to Health Maintenance Results * Due to [place] state law, this organization might not be sharing sensitive test results. * Chlamydia and Gonorrhoea, Amplified (11/19/2014 3:11 PM EDT) URINE CHLAMYDIA AMP PROBE NEGATIVE [facility] Comment: No Chlamydia Trachomatis RNA detected in this patient's sample (REFERENCE RANGE/NORMAL VALUE: NOT DETECTED) URINE GC AMP PROBE NEGATIVE [facility] Comment: No Neisseria Gonorrhoeae RNA detected in this patient's sample (REFERENCE RANGE/NORMAL VALUE: NOT DETECTED) NOTE: This test uses hvac residential service technician-mediated amplification method to detect rRNA from C.Trachomatis [...] without risk of sexual abuse. Consult the [facility] if needed. Contact phone number . Therapeutic failure or success cannot be determined with the Aptima Combo2 assay since nucleic acid may persist following appropriate antimicrobial therapy. The Centers for Disease Control and Prevention (CDC) recommends confirmatory retesting using culture or a different nucleic acid amplification test when positive results occur, if indicated. Testing performed or reported by [facility], a Service of [facility], [address] [place] [address] Eloy Baires MD, PhD, Rail Washer 11/19/2014 3:11 PM EDT Narrative [facility] - 11/19/2014 3:11 PM EDT URINE CHLAMYDIA GC AMP PROBE us Ailyn Bosch DO LAB MICROBIOLOGY - GENERAL ORDER SUZANNA Final Result [facility] [address] [place] [address], [place] from Last 3 Months or Most Recently Relevant to Health Maintenance
--- OUTSIDE RECORDS SUMMARY | 2025-04-06 11:33 | XMS_ITS | Encounter Summary ---
Author Organization [facility] Address [address] [place] [address] Phone Care Team Providers Care Briquette Machine Operator Helper Name Role Phone Ailyn Bosch DO Primary Care Provider [phone] Encounter Details Date Type Department Care Team (Late st Contact Info) Description 09/14/2010 Documentation [facility] [place] [address] [place] [address] Family Medicine, Physician [address] [place] [address] Social History Tobacco Use Types [...] on filedocumented in this encounter Care Teams Briquette Machine Operator Helper Relationship Specialty Start Date End Date Ailyn Bosch DO [address] [facility] [place] [address] PCP - General 01/12/17 11/08/22 documented as of this encounter
--- OUTSIDE RECORDS SUMMARY | 2025-04-06 11:33 | XMS_ITS | Encounter Summary ---
Author Organization [facility] Address [address] [place] [id number] Phone Care Team Providers Care City Wellness Coordinator Name Role Phone Ailyn Bosch DO Primary Care Provider [phone] Encounter Details Date Type Department Care Team (Late st Contact Info) Description 06/10/2010 Documentation [facility] Family Medicine [address] [place] [address] Family Medicine, Physician [address] [place] [address] Social History Tobacco Use Types [...] on filedocumented in this encounter Care Teams City Wellness Coordinator Relationship Specialty Start Date End Date Ailyn Bosch DO [address] [facility] [place] [address] PCP - General 01/12/17 11/08/22 documented as of this encounter
--- OUTSIDE RECORDS SUMMARY | 2025-04-06 11:33 | XMS_ITS | Encounter Summary ---
Author Organization [facility] Address [address] [place] [id number] Phone Care Team Providers Care Knock Up Assembler Name Role Phone Ailyn Bosch DO Primary Care Provider [phone] Encounter Details Date Type Department Care Team (Late st Contact Info) Description 06/14/2010 Documentation [facility] [place] [address] [place] [address] Family Medicine, Physician [address] [place] [address] Social History Tobacco Use Types [...] on filedocumented in this encounter Care Teams Knock Up Assembler Relationship Specialty Start Date End Date Ailyn Bosch DO [address] [facility] [place] [address] PCP - General 01/12/17 11/08/22 documented as of this encounter
== END 2025-04-06 11:11 | disposition home or self-care (01) ==
LOC: HO.HGI 09:54
PROVIDERS: PCP Internal Medicine; Visit Provider Internal Medicine
DX: K83.8 Other specified diseases of biliary tract (principal); R10.9 Unspecified abdominal pain
CPT/HCPCS: 99204

== ENCOUNTER 2025-04-06 09:53 | Outpatient (REF) | payer OTHER, SELFPAY ==
[2025-04-06 12:26] LABS: Appearance Urine Clear; Glucose Urine UA Negative (Negative); PH 6.0 (5.0-9.0); Specific Gravity - Urine 1.025 (1.005-1.025); UMIC TRIGGER UACC YES
[2025-04-06 12:35] LABS: Alanine Aminotransferase 19 U/L (0-31); Albumin Level 4.8 g/dL (3.5-5.0); Alkaline Phosphatase 68 U/L (39-117); Aspartate Amino Transferase 20 U/L (5-31); Total Protein 7.8 g/dL (6.5-8.0)
== END 2025-04-06 09:54 | disposition home or self-care (01) ==
LOC: HO.LAB 09:53
PROVIDERS: PCP Internal Medicine; Visit Provider Internal Medicine
DX: K83.8 Other specified diseases of biliary tract (principal); R10.9 Unspecified abdominal pain
CPT/HCPCS: 36415; 80076; 81001; 99202

== ENCOUNTER → 2025-05-15 07:40 | Outpatient (BNV) | payer OTHER, SELFPAY | PROVIDERS: PCP Internal Medicine; Visit Provider Radiology Diagnostic Radiology | DX: K83.8 Other specified diseases of biliary tract (principal) | CPT/HCPCS: 74181 ==

== ENCOUNTER 2025-05-15 07:59 | Outpatient (REF) | payer OTHER, SELFPAY ==
--- NOTE | ~2025-05-15 | MR_ITS ---
EXAMINATION: MRCP HISTORY: K83.8 - Other specified diseases of biliary tract COMPARISON: Correlation is made with an abdominal ultrasound dated 03/23/2025. TECHNIQUE: Axial gradient echo in and out of phase T1, axial T2 and fat suppressed T2, and coronal haste T2 with fat saturation images were obtained through the abdomen. 3D MRCP Reconstructed images and thick slab imaging of the biliary tree were obtained. FINDINGS: There is no significant signal loss within the liver on opposed phase imaging to suggest steatosis. There is no intrahepatic biliary ductal dilatation. The gallbladder is unremarkable. No gallstones are seen. The common bile duct measures up to 8 mm in diameter. No intraluminal filling defects are identified within the common bile duct to suggest choledocholithiasis. The pancreas is unremarkable. The pancreatic duct is normal in caliber. The spleen, adrenals, and kidneys are unremarkable. No retroperitoneal lymphadenopathy or ascites is identified in the upper abdomen. The visualized bones demonstrate normal marrow signal intensity. MR/MR MRCP IMPRESSION: Mild dilatation of the common bile duct without evidence of cholelithiasis or choledocholithiasis. Electronically signed by: Piero Barlow MD 05/15/2025 09:19 AM [facility] [place]
== END 2025-05-15 08:00 | disposition home or self-care (01) ==
LOC: HO.MRI 07:59
PROVIDERS: PCP Internal Medicine; Visit Provider Internal Medicine
DX: K83.8 Other specified diseases of biliary tract (principal)
CPT/HCPCS: 74181